=== PATIENT | male | born 1955 | race Caucasian/White ===

== ENCOUNTER 2024-06-01 06:35 | Outpatient (CLI) | payer MEDICARE, SELFPAY ==
--- NOTE | ~2024-06-01 | MR_ITS ---
MRI of the lumbar spine Clinical History: Back pain Technique: Axial T2-weighted images, and sagittal T1-weighted, T2-weighted, and and T2 fat-sat images were acquired. Following intravenous administration of 15 cc MultiHance gadolinium, T1-weighted fat- sat imaging was performed in the axial and sagittal planes. Findings: There is no fracture of the lumbar spine. There is minimal grade 1 retrolisthesis of L5 ove r S1. There are Modic type I changes about the L5-S1 disc space. No suspicious bone marrow signal abn ormality seen. At L1-L2, there is moderate to advanced degenerative disc narrowing. There is mild disc bulge with mo derate facet arthropathy. No central canal stenosis. There is moderate left neural foraminal narrowin g, and mild right neural foraminal narrowing. At L2-L3, there is advanced degenerative disc narrowing. There is mild diffuse disc bulge and advance d facet arthropathy. No central canal stenosis. There is moderate to advanced bilateral neural forami nal narrowing, left worse than right. At L3-L4, there is advanced degenerative disc narrowing. There is minimal disc bulge with moderate to advanced facet arthropathy. No central canal stenosis. There is moderate to advanced bilateral neura l foraminal narrowing. At L4-L5, there is advanced degenerative disc narrowing. There is diffuse disc bulge and severe facet arthropathy. There is minimal central canal stenosis. There is severe bilateral neural foraminal genesis iber otherwise. At L5-S1, there is severe degenerative disc narrowing. There is diffuse disc bulge with severe facet arthropathy. There is significant compression of the thecal sac, largely due to prominent epidural fa t at this level. There is severe bilateral neural foraminal, otherwise. Paravertebral soft tissues are otherwise unremarkable. Impression: Advanced degenerative spondylosis, as detailed above. Reviewed, dictated and finalized at location M. Impression: Advanced degenerative spondylosis, as detailed above.
== END 2024-06-01 06:36 | disposition home or self-care (01) ==
PROVIDERS: Visit Provider Neurological Surgery
DX: M47.896 Other spondylosis, lumbar region (principal)
CPT/HCPCS: 72158; A9577

== ENCOUNTER 2025-01-08 09:55 | Outpatient (CLI) | payer MEDICARE, SELFPAY ==
--- NOTE | 2025-01-08 10:51 | ECG_ITS ---
Test Date: 2025-01-08 11:05:45 Measurements Intervals [place] Rate: 71 P: -15 RI: 172 QRS: 1 QRSD: 92 T: 18 QT: 366 QTc: 400 Interpretive Statements SINUS RHYTHM No previous ECG available for comparison Electronically Signed On 01-09-2025 16:35:14 CDT by Jas Dupont M.D.
[2025-01-08 11:19] LABS: Hemoglobin 13.6 g/dL (14.0-18.0); Mean Corpuscular HGB Conc 32.4 g/dl (32-36); Mean Corpuscular Hemoglobin 30.3 pg (26-34); Mean Corpuscular Volume 93.5 fl (80-100); Mean Platelet Volume 10.6 fl (7.4-10.4); Platelet Count Result 196 k/mm3 (150-375); Red Blood Count 4.49 M/mm3 (4.6-6.20); Red Cell Distribution Width 12.7 % (11.5-14.5); White Blood Count 6.5 K/mm3 (4.5-10.0)
[2025-01-08 11:23] LABS: Add Urine Microscopic? NO; Appearance Urine Clear (Clear); Bilirubin Urine Negative (Negative); Blood Urine Negative (Negative); Color Urine Yellow (Yellow); Glucose Urine UA Negative (Negative); Ketones Urine Negative (Negative); Leukocyte Esterase Ur Negative LEU/UL (Negative); Nitrate Urine Negative (Negative); Protein Urine Negative (Negative); Specific Grav Ur 1.008 (1.001-1.035); Urobilinogen Urine 0.2 mg/dL (<2.0)
[2025-01-08 11:28] LABS: Hemoglobin A1C 6.5 % (<5.7)
[2025-01-08 11:33] LABS: Prothrombin Time 12.9 Seconds (11.1-14.7)
--- OUTSIDE RECORDS SUMMARY | 2025-01-08 11:35 | XMS_ITS | Encounter Summary ---
Author Organization [facility] Address [address] [place] [address] Phone Care Team Providers Care Assembly Operator Name Role Phone Dominick Brennan MD Primary Care Provider Eran Ortega MD Unavailable Unavailable Reason for Visit * Reason Comments Medication Refill Encounter Details Date Type Department Care Team (Late st Contact Info) Description 09/18/2021 Refill [facility] [address] [place] [address] Dominick Brennan MD [address] [address] Medication Refill Social History Tobacco Use Types Packs/Day Years Used Date Smoking Tobacco: Never Smokeless Tobacco: Never Alcohol Use Standard Drinks/Week Comments No 0 (1 standard drink = 0.6 oz pur e alcohol) PHQ-2 Answer Date Recorded Total Score - Questions 1-9 0 11/26 Sexually Active Control Partners Comments Yes Female Sex and Gender Information Value Date Recorded Sex Assigned at Not on file Legal Sex Male 11:09 PM CDT Gender Identity Not on file Sexual Orientation Not on file documented as of this encounter Miscellaneous Notes * Telephone Encounter - Beatrice Garcia RN - 09/19/2021 2:23 PM CST Patient needs an appointment with PCP/MEDICAL OFFICE RECEPTIONIST ASSISTANT prior to anymore refills EAR PHYSICIAN * Telephone Encounter - Beatrice Garcia RN - 09/19/2021 2:22 PM CST 90 days on 09/08/21 EAR PHYSICIAN documented in this encounter Plan of Treatment Not on file documented as of this encounter Visit Diagnoses Not on filedocumented in this encounter Additional Health Concerns Assessment Noted Time PHQ-9 Depression Total Score: 0 12/22/19 20 8:00 AM NUCLEAR PHYSICIAN documented as of this encounter Care Teams Assembly Operator Relationship Specialty Start Date End Date Dominick Brennan MD [address] [id number] PCP - General Family Medicine 09/04/15 01/19/23 Eran Ortega MD [address] [address] Consulting Physician Gastroenterology 05/05/17 documented as of this encounter
--- OUTSIDE RECORDS SUMMARY | 2025-01-08 11:35 | XMS_ITS | Clinical Summary ---
Author Organization [facility] Address [address] [place] [address] Care Team Providers Care Adult Remedial Education Instructor Name Role Phone Dominick Brennan MD Primary Care Provider [phone] Pranav Charles MD Unavailable [phone] Allergies Active Allergy Reactions Criticality Noted Date Comments Vince Inhibitors Other (See comments) Low 01/02/2020 Cough Medications blood glucose diagnostic (OneTouch Ultra Blue Test Strip) strip Test once a day on a rotation basis 12/29/2016 Active metFORMIN (GLUCOPHAGE) 500 mg tabletIndicatio ns:Prevention of Type 2 Diabetes Mellitus Take 1,000 mg by mouth 2 (two) times a day with meals 06/10/2020 Active omega-3 fatty acids-fish oil 360-1,200 mg capsule Take 1,200 mg by mouth daily Active rosuvastatin (CRESTOR) 10 mg tablet TAKE ONE TABLET BY MOUTH EVERY EVENING 04/04/2020 Active telmisartan (MICARDIS) 40 mg tablet Take 40 mg by mouth daily 06/21/2020 Active coenzyme Q10 100 mg capsule Take 100 mg by mouth daily Active HYDROcodone-vince taminophen (NORCO) 5-325 mg per tabletIndicatio ns:Pain Take 1-2 tablets by mouth every 4 (four) hours as needed for pain 30 tablet 12/29/2021 Active Active Problems Problem Noted Date Diagnosed Date Personal history of colonic polyps 01/22/2021 Overview (01/22/2021): Added automatically from request for surgery [id number] Encounter for screening colonoscopy 01/22/2021 Overview (01/22/2021): Added automatically from request for surgery [id number] Inflamed seborrheic keratosis 03/03/2017 Papules 11/12/2015 Keratosis, senilis 11/12/2015 Multiple benign melanocytic nevi 11/12/2015 Hypertension 03/10/2014 Overview (01/28/2017): HYPERTENSION NOS Hyperlipidemia 03/10/2014 Overview (01/30/2017): HYPERLIPIDEMIA NEC/NOS Immunizations Immunization Administration Dates Next Due Influenza, Trivalent, IM (MDV) 08/31/2008 Surgical History Surgery Date Site/Laterality Comments COLONOSCOPY 07/23/2015 COLONOSCOPY 03/10/2021 KIDNEY STONE SURGERY Medical History Medical History Date Comments Hyperlipidemia Hyperlipidemia Kidney stones Hypertension Type 2 diabetes mellitus (HCC) GERD (gastroesophageal reflux disease) Family History Medical History Relation Name Comments Diabetes type II Brother 1 Diabetes -T ype II; Diabetes Brother 2 Family history of diabetes mellitus - (Added by TW Conv) Coronary artery disease Father Chris nary artery disease; Diabetes Father Family history of diabetes mellitus - (Added by TW Conv) Diabetes type II Father Diabetes -T ype II; Cause of : Diabetes -Type II Hypertension Father Hypertension; Stroke Father Stroke; Prostate cancer Maternal Grandfather Fami ly history of malignant neoplasm of prostate - Relation: Grandfather (Added by TW Conv) Stroke Mother Stroke; Diabetes Other 1 Family history of diabetes mellitus - (Added by TW Conv) Prostate cancer Other 2 Family histo ry of malignant neoplasm of prostate - (Added by TW Conv) Relation Name Status Comments Brother 1 Brother 2 Father Maternal Grandfather Mother Other 1 Other 2 Social History Tobacco Use Types Packs/Day Years Used Date Smoking Tobacco: Never Alcohol Use Standard Drinks/Week Comments Yes 0 (1 standard drink = 0.6 oz pur e alcohol) AUDIT-C Answer Date Recorded Q1: How often do you have a drink containing alc ohol? Never 12/15/2021 Average Number of Drinks Not on file 022 Frequency of Binge Drinking Not on file 11/26 Sex and Gender Information Value Date Recorded Sex Assigned at Not on file Legal Sex Male 12:46 AM FAMILY LAW MEDIATOR Gender Identity Not on file Sexual Orientation Not on file Obstetrics History Last Filed Vital Signs Vital Sign Reading Time Taken Comments Blood Pressure 150/96 12/29/2021 10:20 AM FAMILY LAW MEDIATOR Pulse 73 12/29/2021 10:25 AM FAMILY LAW MEDIATOR Temperature 36 C (96.8 F) 12/29/2021 9:55 AM FAMILY LAW MEDIATOR Respiratory Rate 17 12/29/2021 10:25 AM FAMILY LAW MEDIATOR Oxygen Saturation 99% 12/29/2021 10:25 AM FAMILY LAW MEDIATOR Inhaled Oxygen Concentration - - Weight 74.8 kg (165 lb) 12/15/2021 11:40 AM FAMILY LAW MEDIATOR Height 167.6 cm (5' 6 ) 12/15/2021 11:40 AM FAMILY LAW MEDIATOR Body Mass Index 26.63 12/15/2021 11:40 AM FAMILY LAW MEDIATOR Plan of Treatment Health Maintenance Due Date Last Done Comments Depression Screening 1955 Hepatitis C Screening 1955 Hepatitis B Screening 1972 Zoster Vaccine (1 of 2) 2004 DTaP/Tdap/Td Vaccine (1 - Tdap) 10/26/2008 9 Abdominal Aortic Aneurysm (A AA) Screen 2019 Well Visit 65+ 2019 Pneumococcal vaccine 65+ (2 of 2 - PPSV23) 08/04/2022 08/04/2021 Fall Risk Assessment 12/29/2022 12/29/2021 Covid-19 Vaccine (3 - 2023-2 5 season) 2024 02/04/2021, 01/07/2021 Influenza Vaccine (#1) 2024 9, 08/14/2019, 09/21/2018, Additional history exists Colon Cancer Screening-Colonoscopy 03/10/2031 03/10/2021, 07/23/2015 Colon Cancer Screening-CT Colonography Discontinued 03/10/2021, 07/23/2015 Colon Cancer Screening-DNA Stool Discontinued 03/10/20 21, 07/23/2015 Colon Cancer Screening-FIT Discontinued 03/10/2021, Colon Cancer Screening-Sigmoidoscopy Discontinued 03/10/2021, 07/23/2015 Procedures Procedure Name Priority Date/Time Associated Diagnosis Comments COLONOSCOPY 03/10/2021 7:29 AM CDT from Last 3 Months or Most Recently Relevant to Health Maintenance Results * COLONOSCOPY (03/10/2021 7:29 AM CDT) Anatomical Region Laterality Modality Other Narrative Procedure Note Eran Ortega MD - 03/10/2021 7:[address] [facility] Patient Name: Zander Zhao Procedure Date: 03/10/2021 7:29 AM Date of : 1955 Admit Type: Outpatient Age: 65 Gender: Male Attending MD: Eran Ortega M.D. Room: [facility] END[facility]COPY ROOM 2 Note Status: Finalized Patient Profile: Refer to note in patient chart for documentation of history and physical. Procedure: Colonoscopy Indications: High risk colon cancer surveillance: Personalhistory of colonic polyps, Last colonoscopy: June2015 Referring MD: Alisha Benjamin D.O. Providers: Eran Ortega M.D. Impression: - Hemorrhoids found on perianal exam. - One 2 mm polyp in the ascending colon, removedwith a jumbo cold forceps. Resected and retrieved. - The examination was otherwise normal. Recommendation: - Discharge patient to home. - Resume previous diet. - Continue present medications. - Await pathology results. - Repeat colonoscopy in 5 years for surveillance. - Return to primary care physician as previously scheduled. Medicines: Propofol per Anesthesia Complications: No immediate complications. Estimated Blood Loss: Estimated blood loss: none. Procedure: Pre-Anesthesia Assessment: - This assessment was completed [Time ofAssessment] prior to the administration of sedation. The benefits, risks and alternatives of theprocedure and sedation were discussed and informed consentwas obtained. All questions were answered. Please referto the signed informed consent document in the medical record. The bowel preparation used was Miralax and bisacodyl tablets via single dose instruction. The scope was passed under direct vision. TheColonoscope [id number] was introduced through the anus and advanced to the the cecum, identified by appendiceal orifice and ileocecal valve. The colonoscopy was performed without difficulty. The patient tolerated the procedure well. The qualityof the bowel preparation was excellent. Findings: Hemorrhoids were found on perianal exam. A 2 mm polyp was found in the ascending colon. The polyp was sessile. The polyp was removed with a jumbo cold forceps. Resection andretrieval were complete. Verification of patient identification for thespecimen was done by the physician and nurse using the patient's name andbirth date. Estimated blood loss was minimal. The exam was otherwise without abnormality. Electronically signed by Eran Ortega M.D. Eran Ortega M.D. 03/10/2021 8:54:57 AM Number of Addenda: 0 Note Initiated On: 03/10/2021 7:29 AM Procedure Code(s): --- Professional --- 38809, Colonoscopy, flexible; with biopsy, single or multiple Diagnosis Code(s): --- Professional --- K63.5, Polyp of colon K64.9, Unspecified hemorrhoids Z86.010, Personal history of colonic polyps CPT copyright 2019 [employer]. All rights reserved. The codes documented in this report are preliminary and upon secret code expert reviewmay be revised to meet current compliance requirements. Recognized by the [employer] for promoting quality in endoscopy Eran Ortega MD ENDOSCOPY PROCEDURES Final Re sult from Last 3 Months or Most Recently Relevant to Health Maintenance Insurance [facility] REF AETNA MEDICARE GOLD [facility] CHOICE PLUS Advance Directives For more information, please contact: [phone] * Full Code (Latest Code Status on File) Date Activated Date Inactivated Comments 03/10/2021 7:50 AM 03/10/2021 1:38 PM Care Teams Adult Remedial Education Instructor Relationship Specialty Start Date End Date Dominick Brennan MD [address] [place] [place] [address] [address] PCP - General 12/23/21 Pranav Charles MD [address] [place] [address] [address] Consulting Physician Neurosurgery 12/29/21
--- OUTSIDE RECORDS SUMMARY | 2025-01-08 11:35 | XMS_ITS | Referral Summary ---
Author Organization [facility] Address [address] [place] [address] Care Team Providers Care Drainage Design Coordinator Name Role Phone Dominick Brennan MD Primary Care Provider [phone] Pranav Charles MD Unavailable [phone] Allergies Active Allergy Reactions Criticality Noted Date [...] (01/22/2021): Added automatically from request for surgery [id number] Encounter for screening colonoscopy 01/22/2021 Overview (01/22/2021): Added automatically from request for surgery [id number] Inflamed seborrheic keratosis 03/03/2017 Papules 11/12/2015 Keratosis, senilis 11/12/2015 Multiple benign melanocytic nevi 11/12/2015 Hypertension 03/10/2014 Overview (01/28/2017): HYPERTENSION NOS Hyperlipidemia 03/10/2014 Overview (01/30/2017): HYPERLIPIDEMIA NEC/NOS Immunizations Immunization Administration Dates Next Due Influenza, Trivalent, IM (MDV) 08/31/2008 Social History Tobacco Use Types Packs/Day Years [...] on file Legal Sex Male 12:46 AM RETICLE PRINTER Gender Identity Not on file Sexual Orientation Not on file Last Filed Vital Signs Vital Sign Reading Time Taken Comments Blood Pressure 150/96 12/29/2021 10:20 AM RETICLE PRINTER Pulse 73 12/29/2021 10:25 AM RETICLE PRINTER Temperature 36 C (96.8 F) 12/29/2021 9:55 AM RETICLE PRINTER Respiratory Rate 17 12/29/2021 10:25 AM RETICLE PRINTER Oxygen Saturation 99% 12/29/2021 10:25 AM RETICLE PRINTER Inhaled Oxygen Concentration - - Weight 74.8 kg (165 lb) 12/15/2021 11:40 AM RETICLE PRINTER Height 167.6 cm (5' 6 ) 12/15/2021 11:40 AM RETICLE PRINTER Body Mass Index 26.63 12/15/2021 11:40 AM RETICLE PRINTER Plan of Treatment Not on file Procedures Procedure Name Priority Date/Time Associated Diagnosis Comments COLONOSCOPY 03/10/2021 7:29 AM CDT from Last 3 Months or Most Recently Relevant to Health Maintenance Results * COLONOSCOPY (03/10/2021 7:29 AM CDT) Anatomical Region Laterality Modality Other Narrative Procedure Note Eran Ortega MD - 03/10/2021 7:29 AM CDT [facility] Patient Name: Zander Zhao Procedure Date: 03/10/2021 7:29 AM Date of : 1955 Admit Type: Outpatient Age: 65 Gender: Male Attending MD: Eran Ortega M.D. Room: [facility] ENDOSCOPY ROOM 2 Note Status: Finalized Patient [...] scope was passed under direct vision. TheColonoscope [id number] was introduced through the anus and advanced [...] 7:29 AM Procedure Code(s): --- Professional --- 54970, Colonoscopy, flexible; with biopsy, single or multiple Diagnosis Code(s): --- Professional --- K63.5, Polyp of colon K64.9, Unspecified hemorrhoids Z86.010, Personal history of colonic polyps CPT copyright 2019 [employer]. All rights reserved. The codes documented in this report are preliminary and upon silk soaker reviewmay be revised to meet current compliance requirements. Recognized by the [employer] for promoting quality in endoscopy Eran Ortega MD ENDOSCOPY PROCEDURES Final Re sult from Last 3 Months or Most Recently Relevant to Health Maintenance Insurance [facility]IC[facility] GOLD [facility] CHOICE PLUS [facility] H[facility]/PPO Address: [facility] [id number] [place] [address] Advance Directives For more information, please contact: [phone] * Full Code (Latest Code Status on File) Date Activated Date Inactivated Comments 03/10/2021 7:50 AM 03/10/2021 1:38 PM Care Teams Drainage Design Coordinator Relationship Specialty Start Date End Date Dominick Brennan MD [address] [place] [address] PCP - General 12/23/21 Pranav Charles MD [address] [place] [address] Consulting Physician Neurosurgery 12/29/21
--- OUTSIDE RECORDS SUMMARY | 2025-01-08 11:35 | XMS_ITS | Clinical Summary ---
Author Organization [facility] Address [address] [place] [address] Phone Care Team Providers Care Visual Merchandising Manager Name Role Phone Alisha Benjamin Primary Care Provider [phone] Allergies Active Allergy Reactions Criticality Noted Date Comments Vince Inhibitors Other (See Comments) Low 01/02/2020 Cough Cough Medications aspirin-calcium carbonate 81 mg-300 mg calcium(777 mg) Tablet Take 81 mg by mouth. Active coenzyme Q10 100 mg Capsule Take 100 mg by mouth. Active Fish Oil-[place]-3 Fatty Acids 360-1,200 mg Capsule Take 1,200 mg by mouth. Active sildenafiL (Viagra) 50 mg tabletIndications :Erectile dysfunction, unspecified erectile dysfunction type Take 1 Tablet (50 mg) by mouth 1 time daily as needed for Erectile Dysfunction. 10 Tablet 1 3 Active rosuvastatin (CRESTOR) 10 mg tablet TAKE 1 TABLET (10 MG) BY MOUTH DAILY. 100 Tablet 3 4 Active telmisartan (MICARDIS) 80 mg TabletIndications :Benign hypertension take 1 tablet by mouth every day 100 Tablet 3 4 Active metFORMIN (GLUCOPHAGE) 500 mg tablet TAKE 2 TABS BY MOUTH 2 TIMES DAILY (WITH MEALS). 360 Tablet 3 4 Active glipiZIDE (GLUCOTROL XL) 5 mg Extended Release 24 hour tabletIndications :Type 2 diabetes mellitus with hyperglycemia, without long-term current use of insulin ([facility]) Take 1 Tablet (5 mg) by mouth daily. 4 Active traMADoL (ULTRAM) 50 mg tabletIndications :Low back pain, unspecified back pain laterality, unspecified chronicity, unspecified whether sciatica present Take 1 Tablet (50 mg) by mouth every 6 hours as needed for Pain. 30 Tablet 3 5 Active blood sugar diagnostic (OneTouch Verio test strips) StripIndications: Type 2 diabetes mellitus with hyperglycemia, without long-term current use of insulin ([facility]) ASSESS BLOOD GLUCOSE 3 TIMES A DAY. DX: E11.65 200 Strip 3 5 Active Active Problems Problem Noted Date Diagnosed Date Benign hypertension 07/15/2020 Pure hypercholesterolemia 07/15/2020 Nephrolithiasis 07/15/2020 DDD (degenerative disc disease), lumbar 07/15/20 20 Type 2 diabetes mellitus wit h hyperglycemia, without long-term current use of insulin Encounters Date Type Department Care Team Description 12/30/2024 External Device Data ST[facility] ABSTRACTION Provider, Abstract 12/29/2024 External Device Data [facility] ABSTRACTION Provider, Abstract 12/13/2024 External Device Data [facility] ABSTRACTION Provider, Abstract 12/01/2024 External Device Data [facility] ABSTRACTION Provider, Abstract 11/21/2024 External Device Data ST[facility] ABSTRACTION Provider, Abstract 11/13/2024 [facility] Internal Medicine [facility] [address] [address] Alisha Benjamin, Type 2 diabetes mellitus with hyperglycemia, without long-term current use of insulin ([facility]) (Primary Dx) 10/25/2024 [facility] Internal Medicine [facility] [address] [place] [address] Alisha Benjamin, Low back pain, unspecified back pain laterality, unspecified chronicity, unspecified whether sciatica present from Last 3 Months Immunizations Immunization Administration Dates Next Due (PREVNAR 13)(6 WKS UP) PNEUM OCOCCAL CONJUGATE (PCV13) 0.5 ML, IM 08/04/2021 (PREVNAR 20)(6 WKS UP) PNEUM OCOCCAL CONJUGATE VACCINE 20-VALENT (PCV20), POLYSACCHARIDE [id number] CONJUGATE, ADJUVANT 0.5 ML (PF) IM 09/24/2022 (SPIKEVAX) (12 YRS UP PRIMAR Y SERIES) COVID-19 VACCINE - MRNA-1273(PF) 100 MCG/0.5 ML IM SUSP 01/07/2021 INFLUENZA VACCINE HIGH DOSE QUADRIVALENT 65 YR UP PF IM 08/10/2023,08/04/2021 INFLUENZA VACCINE QUADRIVALENT 6 MOS UP PF IM INFLUENZA VACCINE QUADRIVALENT ADJ 65 YR UP PF I M 07/30/2020 Influenza Seasonal Unspecified Formulation IM Influenza Vaccine High Dose 65+ Yrs IM 9 Influenza Vaccine Tri Split 4+ Pf Im 08/31/2008 Family History Medical History Relation Name Comments Diabetes Brother Diabetes Father Heart Disease Father Stroke Father Stroke Mother Relation Name Status Comments Brother Father Mother Social History Tobacco Use Types Packs/Day Years Used Date Smoking Tobacco: Never Alcohol Use Standard Drinks/Week Comments Yes 0 (1 standard drink = 0.6 oz pur e alcohol) Financial Resource Strain Answer Date R ecorded How hard is it for you to pa y for the very basics like food, housing, medical care, and heating? Not hard at all 09/10/2022 Food Insecurity Answer Date Recorded In the past 12 months, have you worried that your food would run out before you had money to buy more? Never true 09/10/2022 In the past 12 months, did y ou run out of food and didn't have money to buy more? Never true 09/10/2022 Transportation Needs Answer Date Record ed In the past 12 months, has l ack of transportation kept you from medical appointments or from getting medications? 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 Not on file Not on file Not on file Last Filed Vital Signs Vital Sign Reading Time Taken Comments Blood Pressure 130/76 08/25/2024 9:57 AM CDT Pulse 95 08/25/2024 9:57 AM CDT Temperature 36.7 C (98.1 F) 08/25/2024 9:57 AM CDT Respiratory Rate 18 01/31/2024 1:38 PM CDT Oxygen Saturation 98% 08/25/2024 9:57 AM CDT Inhaled Oxygen Concentration - - Weight 72.6 kg (160 lb) 08/25/2024 9:57 AM CDT Height 167.6 cm (5' 6 ) 08/25/2024 9:57 AM CDT Body Mass Index 25.82 08/25/2024 9:57 AM CDT Plan of Treatment Upcoming Encounters Date Type Department Care Team (Late st Contact Info) Description 02/26/2025 11:00 AM CDT Office Visit [facility] Internal Medicine [facility] [address] [address] Alisha Benjamin, [address] [facility] [address] [place] [id number] 10/01/2025 1:00 PM WRAPPER SORTER Office Visit [facility] Internal Medicine [facility] [address] [address] Alisha Benjamin, [address] [facility] [address] [place], [place] [id number] Health Maintenance Due Date Last Done Comments DTAP/TDAP/TD VACCINES (1 - Tdap) 1973 DIABETES STATIN MANAGEMENT ( AUTO ORDER) 1994 FIT-DNA Q 3 years 1999 FIT/FOBT Q 1 year 1999 Flex Sig/CT Colonography Q 5 years 1999 ZOSTER VACCINE (1 of 2) 2004 DIABETES ANNUAL RETINAL EXAM 02/12/2023, 12/27/2020, 12/08/2019 INFLUENZA VACCINE (#1) 2024 , 09/24/2022, 08/04/2021, Additional history exists COVID-19 Vaccine (3 - 2023-2 5 season) 2024 02/04/2021, 01/07/2021 [facility]HE eGFR (Auto Order) 10/25/2024 08/16/2024 , 01/20/2024, 04/26/2023, Additional history exists KHE uACR (Auto Order) 10/25/2024 08/16/2024 , 10/29/2023, 04/26/2023, Additional history exists Medicare Advantage ([place]) Preventative Visit/Annual Wellness Visit 10/25/2024 10/29/2023, 08/10/2023, 09/10/2022, Additional history exists DIABETES ANNUAL FOOT EXAM 01/30/20252023, 09/10/2022, 09/10/2022 DIABETES HBA1C Q 6 MONTHS 02/14/20252023, 01/20/2024, 10/27/2023, Additional history exists DIABETES MICROALBUMIN ANNUAL SCREEN 08/16/2025 08/16/2024, 10/29/2023, 04/26/2023, Additional history exists DIABETES: A1C (Auto Order) 08/16/202508/16, 01/20/2024, 10/27/2023, Additional history exists LDL CHOLESTEROL ANNUAL 08/16/2025 , 10/27/2023, 09/01/2022, Additional history exists COLORECTAL SCREENING 03/10/2026 03/10/2021, 03/10/2021, 03/10/2021, Additional history exists Colorectal Cancer Screening 03/10/2026 RSV VACCINE (60+ or ) (1 - 1-dose 75+ series) 2029 PNEUMOCOCCAL VACCINE 50+ YEARS Completed 09/24/2022 , 08/04/2021 Procedures Procedure Name Priority Date/Time Associated Diagnosis Comments MICROALBUMIN/CREATININ E RATIO, RANDOM UR Routine 08/16/2024 9:20 AM CDT Type 2 diabetes mellitus with hyperglycemia, without long-term current use of insulin ([facility]) COMPREHENSIVE METABOLIC PANEL Routine 08/16/2024 9:19 AM CDT Type 2 diabetes mellitus with hyperglycemia, without long-term current use of insulin ([facility]) LIPID PANEL Routine 08/16/2024 9:19 AM CDT Type 2 diabetes mellitus with hyperglycemia, without long-term current use of insulin ([facility]) HEMOGLOBIN A1C Routine 08/16/2024 9:19 AM CDT Type 2 diabetes mellitus with hyperglycemia, without long-term current use of insulin ([facility]) HM DIABETES EYE EXAM Routine 02/12/2022 ENDOSCOPY, COLON, SCREENING Routine 03/10/2021 from Last 3 Months or Most Recently Relevant to Health Maintenance Results * MICROALBUMIN/CREATININE RATIO, RANDOM UR (08/16/2024 9:20 AM CDT) Creatinine, Urine 100 20 - 320 mg/dL [facility] MICROALBUMIN, URINE <0.2 See Note: mg/dL [facility] Comment: Reference Range: Reference Range Not established MICROALBUMIN/CREAT RATIO, UR NOTE <30 mg/g creat [facility] Comment: NOTE: The urine albumin value is less than 0.2 mg/dL therefore we are unable to calculate excretion and/or creatinine ratio. The ADA defines abnormalities in albumin excretion as follows: Albuminuria Category Result (mg/g creatinine) Normal to Mildly increased <30 Moderately increased 30-299 Severely increased > OR = 300 The ADA recommends that at least two of three specimens collected within a 3-6 month period be abnormal before considering a patient to be within a diagnostic category. FASTING:YES FASTING: YES Test Performed at: [facility] [id number] [id number] Estrella Medina MD Urine URINE SPECIMEN OBTAINED BY CLEAN CATCH PROCEDURE / Unknown 08/16/2024 9:20 AM CDT 08/16/2024 9:21 AM CDT Alisha Benjamin DO URINE ORDERABLES Final Result [facility] [phone] [facility] [id number] [id number] * (ABNORMAL) HEMOGLOBIN A1C (08/16/2024 9:19 AM CDT) HEMOGLOBIN A1C 6.0(H) <5.7 % of total Hgb [facility] Comment: For someone without known diabetes, a hemoglobin A1c value between 5.7% and 6.4% is consistent with prediabetes and should be confirmed with a follow-up test. For someone with known diabetes, a value <7% indicates that their diabetes is well controlled. A1c targets should be individualized based on duration of diabetes, age, comorbid conditions, and other considerations. This assay result is consistent with an increased risk of diabetes. Currently, no consensus exists regarding use of hemoglobin A1c for diagnosis of diabetes for children. ESTIMATED AVERAGE GLUCOSE (MG/DL) 126 mg/dL [facility] ESTIMATED AVERAGE GLUCOSE (MMOL/L) 7.0 mmol/L [facility] Comment: FASTING:YES FASTING: YES Test Performed at: [facility] [address] [place] [id number] RadhaLenora Mahsa Adam Blood 08/16/2024 9:19 AM CDT 08/16/2024 9:19 AM CDT Alisha Benjamin DO CHEMISTRY ORDERABLES Final Re sult [facility] [phone] [facility] [address] [place] [id number] * LIPID PANEL (08/16/2024 9:19 AM CDT) CHOLESTEROL 114 <200 mg/dL [facility] HDL 54 > OR = 40 mg/dL [facility] TRIGLYCERIDE 84 <150 mg/dL [facility] LDL CALCULATED 44 mg/dL (calc) [facility] Comment: Reference range: <100 Desirable range <100 mg/dL for primary prevention; <70 mg/dL for patients with CHD or diabetic patients with > or = 2 CHD risk factors. LDL-C is now calculated using the Edmond calculation, which is a validated novel method providing better accuracy than the Friedewald equation in the estimation of LDL-C. Jeet JONES et al. MAKENZIE. 2013;310(19): 4347-3139 (http://education.CareFamily.[employer]/faq/FXE583) CHOL/HDL RATIO 2.1 <5.0 (calc) [facility] NON-HDL CHOLESTEROL 60 <130 mg/dL (calc) [facility] Comment: For patients with diabetes plus 1 major ASCVD risk factor, treating to a non-HDL-C goal of <100 mg/dL (LDL-C of <70 mg/dL) is considered a therapeutic option. Test Performed at: [facility] [address] [facility] [place] [address] Estrella Medina MD Blood 08/16/2024 9:19 AM CDT 08/16/2024 9:19 AM CDT us Alisha Benjamin DO CHEMISTRY ORDERABLES Final Re sult [facility] [phone] [facility] [address] [facility] [place] [address] * (ABNORMAL) COMPREHENSIVE METABOLIC PANEL (08/16/2024 9:19 AM CDT) GLUCOSE 85 65 - 99 mg/dL [facility] Comment: Fasting reference interval BUN 20 7 - 25 mg/dL [facility] CREATININE 0.87 0.70 - 1.28 mg/dL [facility] GFR 93 > OR = 60 mL/min/1. 73m2 [facility] BUN/CREAT RATIO SEE NOTE: 6 - 22 (calc) [facility] Comment: Not Reported: BUN and Creatinine are within reference range. SODIUM 140 135 - 146 mmol/L [facility] POTASSIUM 5.0 3.5 - 5.3 mmol/L [facility] CHLORIDE 103 98 - 110 mmol/L [facility] CO2 26 20 - 32 mmol/L [facility] CALCIUM 10.6(H) 8.6 - 10.3 mg/dL [facility] TOTAL PROTEIN 7.1 6.1 - 8.1 g/dL [facility] ALBUMIN 4.7 3.6 - 5.1 g/dL [facility] GLOBULIN 2.4 1.9 - 3.7 g/dL (calc) [facility] ALBUMIN/GLOBULIN RATIO 2.0 1.0 - 2.5 (calc) [facility] BILIRUBIN TOTAL 0.9 0.2 - 1.2 mg/dL [facility] ALKALINE PHOSPHATASE 83 35 - 144 U/L [facility] AST 25 10 - 35 U/L [facility] ALT 29 9 - 46 U/L [facility] Comment: FASTING:YES FASTING: YES Test Performed at: [facility] [address] [place] [address] Estrella Medina MD Blood 08/16/2024 9:19 AM CDT 08/16/2024 9:19 AM CDT us Alisha Bib Oswaldhn DO CHEMISTRY ORDERABLES Final Re sult Performing Organization Address [facility] Co de Phone Number [facility] [phone] [facility] [address] [place] [address] * DIABETES EYE EXAM (02/12/2022) us Abstract Provider HEALTH MAINTENANCE Final Resul t Performing Organization Address [facility] Co de Phone Number REID VALLADARES MD CLIA# [id number] [address] [facility] [address] [address] * ENDOSCOPY, COLON, SCREENING (03/10/2021) us Alisha Bib Benjamin DO GI PROCEDURE ORDERABLES Final Result Performing Organization Address City/[facility]/ZIP Co de Phone Number REID VALLADARES MD CLIA# [id number] [address] [address] from Last 3 Months or Most Recently Relevant to Health Maintenance Insurance AETNA [id number] [facility] Advance Directives For more information, please contact: [phone] Documents on File Type Date Recorded Patient Child Adolescent Care Expl anation Advance Directive POA 07/26/2020 12:21 PM Advance Directive POA Care Teams Visual Merchandising Manager Relationship Specialty Start Date End Date Alisha Benjamin DO [address] [place] [address] [address] [place] [address] PCP - General Internal Medicine 07/15/20
--- OUTSIDE RECORDS SUMMARY | 2025-01-08 11:35 | XMS_ITS | Encounter Summary ---
Author Organization [facility] Address [address] [place] [address] Phone Care Team Providers Care Special Events Director Name Role Phone Dominick Brennan MD Primary Care Provider Eran Ortega MD Unavailable Unavailable Reason for Visit * Reason Comments Medication Refill Encounter Details Date Type Department Care Team (Late st Contact Info) Description 05/08/2021 Refill [facility] [address] [place] [address] Dominick Brennan MD [address] [address] Medication Refill Social History Tobacco Use Types [...] Telephone Encounter - Beatrice Garcia RN - 05/08/2021 11:48 AM CDT Medication failed the protocol, provider to review and approve the medication order if appropriate. Requested Prescriptions Pending Prescriptions Disp Refills metFORMIN (GLUCOPHAGE) 500 MG Tablet [Pharmacy Med Name: METFORMIN HCL 500 MG TABLET] 360 Tablet 1 Sig: TAKE 2 TABS BY MOUTH 2 TIMES DAILY (WITH MEALS). Biguanides Protocol Failed - 05/08/2021 12:41 AM Failed - Visit with relevant provider in past 6 months or upcoming 90 days Recent Visits No visits were found meeting these conditions. Showing recent visits within past 182 days and meeting all other requirements Future Appointments No visits were found meeting these conditions. Showing future appointments within next 90 days and meeting all other requirements Failed - HgA1C on record in past 6 months HGB-A1C Date Value Ref Range Status 06/25/2020 6.2 (A) 4 - 6 Final Failed - GFR on record in past 6 months GFR, EST. 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
--- OUTSIDE RECORDS SUMMARY | 2025-01-08 11:35 | XMS_ITS | Encounter Summary ---
Author Organization [facility] Address [address] [place] [address] Phone Care Team Providers Care Gasoline Finisher Name Role Phone Dominick Brennan MD Primary Care Provider [phone] Eran Ortega MD Unavailable Unavailable Reason for Visit * Reason Comments Medication Refill Encounter Details Date Type Department Care Team (Late st Contact Info) Description 07/10/2021 Refill [facility] - Family Medicine [facility] [address] [place] [phone] Dominick Brennan MD [address] [address] Medication Refill Social History Tobacco Use Types [...] on file documented as of this encounter Plan of Treatment Not on file documented as of this encounter Visit Diagnoses Not on filedocumented in this encounter Additional Health Concerns Assessment Noted Time PHQ-9 Depression Total Score: 0 12/22/19 20 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
--- OUTSIDE RECORDS SUMMARY | 2025-01-08 11:35 | XMS_ITS | Clinical Summary ---
Author Organization [facility] Address [address] [place] [address] Phone Care Team Providers Care Cable Splicing Technician Name Role Phone Eran Ortega MD Unavailable Unavailable Allergies Active Allergy Reactions Criticality Noted Date Comments Vince Inhibitors Other (see Comments) Cough Medications [place]-3 Fatty Acids (FISH OIL) 1200 MG Capsule Take 1,200 mg by mouth daily. Active Aspirin 81 MG Tablet Take 81 mg by mouth daily. Active Coenzyme Q10 (COQ-10) 100 MG Capsule Take 100 mg by mouth daily. Active Glucose Blood (ONE TOUCH ULTRA TEST) StripIndications:Ty pe 2 diabetes mellitus treated without insulin (HCC) Test once a day on a rotation basis 100 Strip 3 7 Active rosuvastatin (CRESTOR) 10 MG TabletIndications:H yperlipidemia, unspecified hyperlipidemia type TAKE ONE TABLET BY MOUTH EVERY EVENING 90 Tab 2 0 Active metFORMIN (GLUCOPHAGE) 500 MG Tablet TAKE 2 TABS BY MOUTH 2 TIMES DAILY (WITH MEALS). 360 Tablet 1 1 Active telmisartan (MICARDIS) 40 MG Tablet TAKE 1 TABLET BY MOUTH EVERY DAY 30 Tablet 1 Active Active Problems Problem Noted Date Diagnosed Date Chronic joint pain 06/20/2020 Chronic back pain greater than 3 months duration 06/20/2020 Bilateral hip pain 06/20/2020 Hypercalcemia 05/03/2019 Renal stones 08/02/2018 Overweight 12/16/2017 Type 2 diabetes mellitus treated without insulin 11/17/2016 Elevated hemoglobin A1c 11/16/2016 Elevated liver enzymes 12/26/2015 Hypertension, essential 12/26/2015 Hyperlipidemia 12/16/2015 Resolved Problems Problem Noted Date Diagnosed Date Resolved Date Diet-controlled diabetes mellitus (<HCC>) 12/26/2015 11/16/2016 Hyperglycemia 12/16/2015 05/05/2017 Immunizations Immunization Administration Dates Next Due Covid-19, Mrna, Lnp-s, PF, 1 00 mcg/0.5 mL Dose (Moderna) 02/04/2021,01/07/2021 Influenza Vaccine 08/31/2008 Influenza Vaccine greater than 3 yrs 10/13/2013, 08/31/2008 Influenza Vaccine less than 3 yrs 08/14/2019 Influenza Vaccine, Quadrivalent, PF 09/21/2018 Influenza, Quadrivalent, Adjuvanted 07/30/2020 Influenza, Seasonal, Injectable, Undefined 08/21,10/13/2013,10/25/2012 Influenza, high-dose, trivalent, PF 08/15/2019 TD VACCINE 10/25/2008 Family History Medical History Relation Name Comments Diabetes Brother Cancer Daughter Diabetes Father Hypertension Father Stroke Father Stroke Mother Relation Name Status Comments Brother Daughter Father Mother Social History Tobacco Use Types Packs/Day Years Used Date Smoking Tobacco: Never Smokeless Tobacco: Never Tobacco Cessation:Counseling Given: No Alcohol Use Standard Drinks/Week Comments No 0 [...] Sign Reading Time Taken Comments Blood Pressure 120/76 06/25/2020 3:38 PM CDT Pulse 83 06/25/2020 3:38 PM CDT Temperature 35.8 C (96.5 F) 06/25/2020 3:38 PM CDT Respiratory Rate 16 06/25/2020 3:38 PM CDT Oxygen Saturation 97% 06/25/2020 3:38 PM CDT Inhaled Oxygen Concentration - - Weight 75.3 kg (166 lb) 06/25/2020 3:38 PM CDT Height 167.6 cm (5' 6 ) 06/25/2020 3:38 PM CDT Body Mass Index 26.79 06/25/2020 3:38 PM CDT Plan of Treatment Health Maintenance Due Date Last Done Comments Diabetes: Foot Exam 1955 Hepatitis C Virus (HCV) Screening 1955 TdaP Immunization 1955 Pneumococcal Immunization (50+ years) (1 of 2 - PCV) 1973 Cologuard 2004 Immunochemical Fecal Occult Blood 2004 Zoster Immunization (1 of 2) 2004 Diabetes: Eye Exam 12/08/2020 12/08/2019 Diabetes: Hemoglobin A1c 12/23/2020 020, 11/03/2019, 05/02/2019, Additional history exists Diabetes: Nephropathy Screening 07/03/2021 07/03/2020, 06/29/2019, 02/02/2019, Additional history exists Influenza Immunization (#1) 06/25/202403/2020, 08/15/2019, 08/14/2019, Additional history exists SARS-COV-2 Immunization ( season) 2024 02/04/2021, 01/07/2021 Colonoscopy 07/23/2025 07/23/2015 Colorectal Cancer Screening 07/23/2025 Respiratory Syncytial Virus (RSV) Immunization (Adult) (1 - 1-dose 75+ series) 2029 07/23/2015 PSA Discussion Discontinued 08/21/2019, 11/25, 12/08/2017, Additional history exists Hepatitis B Immunization Aged Out No longer eligible based on patient's age to complete this topic Meningococcal Immunization (ACWY) Aged Out No longer eligible based on patient's age to complete this topic Rotavirus Immunization Aged Out No lo nger eligible based on patient's age to complete this topic Procedures Procedure Name Priority Date/Time Associated Diagnosis Comments CMP (COMPREHENSIVE METABOLIC PANEL) Routine 07/03/2020 9:14 AM CDT Renal stones Hypercalcemia POCT GLYCOSYLATED HEMOGLOBIN Routine 06/25/2020 3:55 PM CDT Type 2 diabetes mellitus without complication, without long-term current use of insulin (HCC) PSA SCREEN Routine 08/21/2019 Prostate cancer screening HM COLONOSCOPY Routine 07/23/2015 from Last 3 Months or Most Recently Relevant to Health Maintenance Results * (ABNORMAL) CMP (COMPREHENSIVE METABOLIC PANEL) (07/03/2020 9:14 AM CDT) SODIUM 134(L) 136 - 144 mmol/L 07/03/2020 11:10 AM CDT [facility] POTASSIUM 4.8 3.5 - 5.1 mmol/L 07/03/2020 11:10 AM CDT [facility] CHLORIDE 98(L) 100 - 110 mmol/L 07/03/2020 11:10 AM CDT [facility] CO2, VENOUS 27 22 - 32 mmol/L 07/03/2020 11:10 AM CDT [facility] ANION GAP 13.8 8.0 - 20.0 mmol/L 07/03/2020 11:10 AM CDT [facility] GLUCOSE 180(H) 70 - 99 mg/dL 07/03/2020 11:10 AM CDT [facility] BUN 23 8 - 23 mg/dL 07/03/2020 11:10 AM CDT [facility] CREATININE, BLOOD 0.69(L) 0.80 - 1.30 mg/dL 07/03/2020 11:10 AM CDT [facility] BUN/CREATININE RATIO 33(H) 12 - 20 ratio 07/03/2020 11:10 AM CDT [facility] TOTAL PROTEIN 7.0 6.0 - 8.3 g/dL 07/03/2020 11:10 AM CDT [facility] ALBUMIN 4.7 3.5 - 5.2 g/dL 07/03/2020 11:10 AM CDT [facility] Comment: The colormetric methods used for the determination of Albumin may lead to falsely elevated test results in patients suffering from renal failure or insufficiency due to interference with other proteins. A/G RATIO 2.0 1.0 - 2.0 07/03/2020 11:10 AM CDT [facility] CALCIUM 10.1 8.9 - 10.3 mg/dL 07/03/2020 11:10 AM CDT [facility] T BILI 0.9 <=1.2 mg/dL 07/03/2020 11:10 AM CDT [facility] SGOT (AST) 21 <=40 U/L 07/03/2020 11:10 AM CDT [facility] SGPT (ALT) 35 <=41 U/L 07/03/2020 11:10 AM CDT [facility] ALKALINE PHOSPHATASE 78 40 - 130 U/L 07/03/2020 11:10 AM CDT [facility] GFR, EST. NONAFRICAN >60 >=60 07/03/2020 11:10 AM CDT [facility] GFR, EST. >60 >=60 020 11:10 AM CDT [facility] Comment: Creatinine Clearance is the preferred criteria for selecting drug dose adjustments in renally impaired patients. The GFR is provided as additional pertinent clinical information. GFR is reported in mL/min/1.73 sq m. Blood Venipuncture / Unknown 07/03/2020 9:14 AM CDT 07/03/2020 10:22 AM CDT us Yue Meek MD CHEMISTRY ORDERABLES Final Resul t [facility] [address] [place] [address] * (ABNORMAL) POCT GLYCOSYLATED HEMOGLOBIN (06/25/2020 3:55 PM CDT) HGB-A1C 6.2(A) 4 - 6 06/25/2020 3:55 PM CDT us Yue Meek MD POINT OF CARE TESTING (MANUAL) F inal Result * PSA SCREEN (08/21/2019) PSA (PROSTATE SPECIFIC ANTIGEN) 0.6 ng/mL Blood specimen (specimen) 08/21/2019 Dayana Jackson MD CHEMISTRY ORDERABLES Final Result * COLONOSCOPY (07/23/2015) Eran Ortega MD PROCEDURE/MINOR SURGICAL ORDER ANA CRISTINA Final Result from Last 3 Months or Most Recently Relevant to Health Maintenance Insurance MEDICARE C AETNA Care Teams Cable Splicing Technician Relationship Specialty Start Date End Date Eran Ortega MD Consulting Physician Gastroenterology 05/05/17
[2025-01-08 11:47] LABS: Anion Gap 13 mmol/L (4-12); Blood Urea Nitrogen 21 mg/dL (9-20); Calcium 10.6 mg/dL (8.4-10.2); Carbon Dioxide 24 mmol/L (22-30); Chloride 101 mmol/L (98-107); Estimated Glomerular Filt Rate > 60; Glucose 127 mg/dL (65-110); Sodium 138 mmol/L (137-145)
== END 2025-01-08 09:56 | disposition home or self-care (01) ==
LOC: ANHSURGERY 10:07
PROVIDERS: Visit Provider Neurological Surgery
DX: M47.816 Spondylosis without myelopathy or radiculopathy, lumbar region (principal); I10 Essential (primary) hypertension; Z01.818 Encounter for other preprocedural examination
CPT/HCPCS: 36415; 80048; 81003; 83036; 85027; 85610; 85730; 93005

== ENCOUNTER 2025-01-24 16:16 | Observation (INO) | payer MEDICARE, SELFPAY ==
--- NOTE | 2025-01-08 09:53 | PC.NURSE ---
Report to the Outpatient Waiting Room, entrance under the green pavilion located off [facility], at time __6 AM on date __01/23/25 . Planned Procedure Time: __7:30 AM .? Time changes happen often and if your time is changed the preop area will call you the afternoon before. - You and your visitor will be asked to self-screen and do not enter if you have any COVID symptoms. Please call surgeon if you need to reschedule. - A mask is optional within the hospital at this time. Patients may have clear liquids (water, carbonated beverages, clear teas, apple juice) until 3 hours prior to surgery ( 4:30 AM) with a maximum of 20 ounces. - No food from midnight until time of surgery and no smoking, or chewing tobacco (or any form of nicotine). No chewing gum, candy or mints. - Take only the following medications with a SIP of water on the morning of surgery: ___NONE DO NOT STOP ANY OF YOUR OTHER PRESCRIPTION MEDICATIONS PRIOR TO SURGERY EXCEPT THE FOLLOWING Hold all vitamins and supplements for 3 days per anesthesiologist. LAST DOSE 01/19/25 Medications to discontinue per physician _PT STATES __HOLD __ASPIRIN [address] MENON Date to take last dose 01/15/25 Please no make-up, nail danish, hairspray, perfume, deodorant, or body powder the day of surgery.? No jewelry (including any body piercings) or valuables the day of surgery, leave them at home.? Please take a shower or bath the night before, or the morning of, surgery with an antibacterial soap.? Wear comfortable, loose fitting clothing.? Children are encouraged to wear pajamas. - Jewelry must be removed prior to entering the operating room.? Rings and piercings that are not removed may be cut off. - The hospital will not accept responsibility for valuables.? - Please leave all valuables, including medications, at home the day of surgery. If you are going home after surgery, a licensed fast food delivery driver must drive you home.? - NO public transportation without another adult if you receive anesthesia. - We recommend that an adult stay with you for 24 hours following discharge. - We also recommend that you do not drive, make important decision, drink alcoholic beverages, or take any drugs that were not prescribed by your health care provider for at least 24 hours after your discharge time. Follow any additional instructions given to you from your surgeon. VERBAL AND WRITTEN instructions given to __PATIENT and asked if any additional questions and then verbalized understanding. Patient advised to call surgeon office or pre surgery nurse liaison [phone] if any additional questions.
[2025-01-08 10:11] VITALS: BMI 27.1
[2025-01-08 10:51] VITALS: BP 137/90; PULSE 79; RESP 18; TEMP 36.6; O2SAT 100
[2025-01-23] VITALS (16 sets, daily range): BP systolic 117–158; BP diastolic 65–89; PULSE 79–96; RESP 12–20; TEMP 35.6–36.4; O2SAT 94–100
--- OUTSIDE RECORDS SUMMARY | 2025-01-23 02:18 | XMS_ITS | Encounter Summary ---
Author Organization [facility] Address [address] [place] [address] Phone Care Team Providers Care Pulp Grinder Feeder Name Role Phone Dominick Brennan MD Primary Care Provider [phone] Eran Ortega MD Unavailable Unavailable Reason for Visit * Reason Comments Medication Refill Encounter Details Date Type Department Care Team (Late st Contact Info) Description 07/10/2021 Refill [facility] - Family Medicine [facility] [address] [place] [id number] Dominick Brennan MD [address] [address] Medication Refill Social History Tobacco Use Types [...] Total Score: 0 12/22/19 20 8:00 AM LEGAL BILLER documented as of this encounter Care Teams Pulp Grinder Feeder Relationship Specialty Start Date End Date Dominick Brennan MD [address] [address] PCP - General Family Medicine 09/04/15 01/19/23 Eran Ortega MD [address] [address] Consulting Physician Gastroenterology 05/05/17 documented as of this encounter
--- OUTSIDE RECORDS SUMMARY | 2025-01-23 02:18 | XMS_ITS | Encounter Summary ---
Author Organization [facility] Address [address] [place] [address] Phone Care Team Providers Care Semi Conductor Assembler Name Role Phone Dominick Brennan MD Primary Care Provider Eran Ortega MD Unavailable Unavailable Reason for Visit * Reason Comments Medication Refill Encounter Details Date Type Department Care Team (Late st Contact Info) Description 05/08/2021 Refill [facility] [address] [place] [address] Dominick Brennan MD [address] [address] Medication Refill Social History Tobacco Use Types [...] Total Score: 0 12/22/19 20 8:00 AM EMERGENCY DEPT TECH documented as of this encounter Care Teams Semi Conductor Assembler Relationship Specialty Start Date End Date Dominick Brennan MD [address] [facility] [address] [place] [address] PCP - General Family Medicine 09/04/15 01/19/23 Eran Ortega MD [address] [facility] [address] [place] [address] Consulting Physician Gastroenterology 05/05/17 documented as of this encounter
--- OUTSIDE RECORDS SUMMARY | 2025-01-23 02:18 | XMS_ITS | Referral Summary ---
Author Organization [facility] Address [address] [place] [address] Care Team Providers Care Orchardist Name Role Phone Dominick Brennan MD Primary Care Provider [phone] Pranav Charles MD Unavailable [phone] Allergies Active Allergy Reactions Criticality Noted Date [...] (01/22/2021): Added automatically from request for surgery [id number] Encounter for screening colonoscopy 01/22/2021 Overview (01/22/2021): Added automatically from request for surgery [id number] Inflamed seborrheic keratosis 03/03/2017 Papules 11/12/2015 Keratosis, [...] on file Legal Sex Male 12:46 AM TENNIS PLAYER Gender Identity Not on file Sexual Orientation Not on file Last Filed Vital Signs Vital Sign Reading Time Taken Comments Blood Pressure 150/96 12/29/2021 10:20 AM TENNIS PLAYER Pulse 73 12/29/2021 10:25 AM TENNIS PLAYER Temperature 36 C (96.8 F) 12/29/2021 9:55 AM TENNIS PLAYER Respiratory Rate 17 12/29/2021 10:25 AM TENNIS PLAYER Oxygen Saturation 99% 12/29/2021 10:25 AM TENNIS PLAYER Inhaled Oxygen Concentration - - Weight 74.8 kg (165 lb) 12/15/2021 11:40 AM TENNIS PLAYER Height 167.6 cm (5' 6 ) 12/15/2021 11:40 AM TENNIS PLAYER Body Mass Index 26.63 12/15/2021 11:40 AM TENNIS PLAYER Plan of Treatment Not on file Procedures Procedure Name Priority Date/Time Associated Diagnosis Comments COLONOSCOPY 03/10/2021 7:29 AM CDT from Last 3 Months or Most Recently Relevant to Health Maintenance Results * COLONOSCOPY (03/10/2021 7:29 AM CDT) Anatomical Region Laterality Modality Other Narrative Procedure Note Eran Ortega MD - 03/10/2021 7:29 AM CDT [facility] Patient Name: Zander Zhao Procedure Date: 03/10/2021 7:29 AM Date of : 1955 Admit Type: Outpatient Age: 65 Gender: Male Attending MD: Eran Ortega M.D. Room: [facility] ENDOSCOPY ROOM 2 Note Status: Finalized Patient [...] scope was passed under direct vision. TheColonoscope [id number] was introduced through the anus and advanced [...] 7:29 AM Procedure Code(s): --- Professional --- 58740, Colonoscopy, flexible; with biopsy, single or multiple Diagnosis Code(s): --- Professional --- K63.5, Polyp of colon K64.9, Unspecified hemorrhoids Z86.010, Personal history of colonic polyps CPT copyright 2019 [employer]. All rights reserved. The codes documented in this report are preliminary and upon beater engineer helper reviewmay be revised to meet current compliance requirements. Recognized by the [employer] for promoting quality in endoscopy Eran Ortega MD ENDOSCOPY PROCEDURES Final Re sult from Last 3 Months or Most Recently Relevant to Health Maintenance [facility]IC[facility] GOLD [facility] CHOICE PLUS Advance Directives For more information, please contact: [phone] * Full Code (Latest Code Status on File) Date Activated Date Inactivated Comments 03/10/2021 7:50 AM 03/10/2021 1:38 PM Care Teams Orchardist Relationship Specialty Start Date End Date Dominick Brennan MD [address] [address] PCP - General 12/23/21 Pranav Charles MD [address] [place] [place] [address] Consulting Physician Neurosurgery 12/29/21
--- OUTSIDE RECORDS SUMMARY | 2025-01-23 02:18 | XMS_ITS | Encounter Summary ---
Author Organization [facility] Address [address] [place] [address] Phone Care Team Providers Care Piping Engineer Name Role Phone Dominick Brennan MD Primary Care Provider Eran Ortega MD Unavailable Unavailable Reason for Visit * Reason Comments Medication Refill Encounter Details Date Type Department Care Team (Late st Contact Info) Description 09/18/2021 Refill [facility] [address] [place] [address] Dominick Brennan MD [address] [address] Medication Refill Social History Tobacco Use Types [...] PM CST Patient needs an appointment with PCP/MONUMENT INSTALLER prior to anymore refills OELECTRIC SYSTEMS TECHNICIAN * Telephone Encounter - Beatrice Garcia RN - 09/19/2021 2:22 PM CST 90 days on 09/08/21 OELECTRIC SYSTEMS TECHNICIAN documented in this encounter Plan of Treatment Not on file documented as of this encounter Visit Diagnoses Not on filedocumented in this encounter Additional Health Concerns Assessment Noted Time PHQ-9 Depression Total Score: 0 12/22/19 20 8:00 AM HYDROELECTRIC SYSTEMS TECHNICIAN documented as of this encounter Care Teams Piping Engineer Relationship Specialty Start Date End Date Dominick Brennan MD [address] [id number] PCP - General Family Medicine 09/04/15 01/19/23 Eran Ortega MD [address] [address] Consulting Physician Gastroenterology 05/05/17 documented as of this encounter
--- OUTSIDE RECORDS SUMMARY | 2025-01-23 02:18 | XMS_ITS | Clinical Summary ---
Author Organization [facility] Address [address] [place] [address] Care Team Providers Care Child Care Nurse Name Role Phone Dominick Brennan MD Primary Care Provider [phone] Pranav Charles MD Unavailable [phone] Allergies Active Allergy Reactions Criticality Noted Date [...] (01/22/2021): Added automatically from request for surgery [id number] Encounter for screening colonoscopy 01/22/2021 Overview (01/22/2021): Added automatically from request for surgery [id number] Inflamed seborrheic keratosis 03/03/2017 Papules 11/12/2015 Keratosis, [...] on file Legal Sex Male 12:46 AM SATELLITE DISH INSTALLER Gender Identity Not on file Sexual Orientation Not on file Obstetrics History Last Filed Vital Signs Vital Sign Reading Time Taken Comments Blood Pressure 150/96 12/29/2021 10:20 AM SATELLITE DISH INSTALLER Pulse 73 12/29/2021 10:25 AM SATELLITE DISH INSTALLER Temperature 36 C (96.8 F) 12/29/2021 9:55 AM SATELLITE DISH INSTALLER Respiratory Rate 17 12/29/2021 10:25 AM SATELLITE DISH INSTALLER Oxygen Saturation 99% 12/29/2021 10:25 AM SATELLITE DISH INSTALLER Inhaled Oxygen Concentration - - Weight 74.8 kg (165 lb) 12/15/2021 11:40 AM SATELLITE DISH INSTALLER Height 167.6 cm (5' 6 ) 12/15/2021 11:40 AM SATELLITE DISH INSTALLER Body Mass Index 26.63 12/15/2021 11:40 AM SATELLITE DISH INSTALLER Plan of Treatment Health Maintenance Due Date [...] Ortega MD - 03/10/2021 7:29 AM CDT Center Patient Name: Zander Zhao Procedure Date: 03/10/2021 7:29 AM Date of : 1955 Admit Type: Outpatient Age: 65 Gender: Male Attending MD: Eran Ortega M.D. Room: [facility] ENDOSCOPY ROOM 2 Note Status: Finalized [...] scope was passed under direct vision. TheColonoscope [id number] was introduced through the anus and advanced [...] 7:29 AM Procedure Code(s): --- Professional --- 695[address], Colonoscopy, flexible; with biopsy, single or multiple Diagnosis Code(s): --- Professional --- K63.5, Polyp of colon K64.9, Unspecified hemorrhoids Z86.010, Personal history of colonic polyps CPT copyright 2019 [employer]. All rights reserved. The codes documented in this report are preliminary and upon certified procedural coder reviewmay be revised to meet current compliance requirements. Recognized by the [employer] for promoting quality in endoscopy Eran Ortega MD ENDOSCOPY PROCEDURES Final Re sult from Last 3 Months or Most Recently Relevant to Health Maintenance Insurance [facility] REF AETNA MEDICARE GOLD [facility] CHOICE PLUS Advance Directives For more information, please contact: [phone] * Full Code (Latest Code Status on File) Date Activated Date Inactivated Comments 03/10/2021 7:50 AM 03/10/2021 1:38 PM Care Teams Child Care Nurse Relationship Specialty Start Date End Date Dominick Brennan MD [address] [place] [address] [address] PCP - General 12/23/21 Pranav Charles MD [address] [place] [address] [address] Consulting Physician Neurosurgery 12/29/21
--- OUTSIDE RECORDS SUMMARY | 2025-01-23 02:18 | XMS_ITS | Clinical Summary ---
Author Organization [facility] Address [address] [place] [address] Phone Care Team Providers Care Syrup Mixer Name Role Phone Alisha Benjamin Primary Care Provider [phone] Allergies Active Allergy Reactions Criticality Noted Date Comments Vince Inhibitors Other (See Comments) Low 01/02/2020 Cough Cough Medications aspirin-calcium carbonate 81 mg-300 mg calcium(777 mg) Tablet Take 81 mg by mouth. Active coenzyme Q10 100 mg Capsule Take 100 mg by mouth. Active Fish Oil-Gordon-3 Fatty Acids 360-1,200 mg Capsule Take 1,200 mg by mouth. Active sildenafiL (Viagra) 50 mg tabletIndication s:Erectile dysfunction, unspecified erectile dysfunction type Take 1 Tablet (50 mg) by mouth 1 time daily as needed for Erectile Dysfunction. 10 Tablet 1 3 Active rosuvastatin (CRESTOR) 10 mg tablet TAKE 1 TABLET (10 MG) BY MOUTH DAILY. 100 Tablet 3 4 Active telmisartan (MICARDIS) 80 mg TabletIndication s:Benign hypertension take 1 tablet by mouth every day 100 Tablet 3 4 Active metFORMIN (GLUCOPHAGE) 500 mg tablet TAKE 2 TABS BY MOUTH 2 TIMES DAILY (WITH MEALS). 360 Tablet 3 4 Active glipiZIDE (GLUCOTROL XL) 5 mg Extended Release 24 hour tabletIndication s:Type 2 diabetes mellitus with hyperglycemia, without long-term current use of insulin ([facility]) Take 1 Tablet (5 mg) by mouth daily. 4 Active blood sugar diagnostic (OneTouch Verio test strips) StripIndications :Type 2 diabetes mellitus with hyperglycemia, without long-term current use of insulin ([facility]) ASSESS BLOOD GLUCOSE 3 TIMES A DAY. DX: E11.65 200 Strip 3 5 Active traMADoL (ULTRAM) 50 mg tabletIndication s:Low back pain, unspecified back pain laterality, unspecified chronicity, unspecified whether sciatica present Take 1 Tablet (50 mg) by mouth every 6 hours as needed for Pain. 30 Tablet 5 5 Active traMADoL (ULTRAM) 50 mg tabletIndication s:Low back pain, unspecified back pain laterality, unspecified chronicity, unspecified whether sciatica present Take 1 Tablet (50 mg) by mouth every 6 hours as needed for Pain. 30 Tablet 3 5 01/11/20 25 Discontinu ed(Reorder ) Active Problems Problem Noted Date Diagnosed Date Benign hypertension 07/15/2020 Pure hypercholesterolemia 07/15/2020 Nephrolithiasis 07/15/2020 DDD (degenerative disc disease), lumbar 07/15/20 20 Type 2 diabetes mellitus wit h hyperglycemia, without long-term current use of insulin Encounters Date Type Department Care Team Description 01/10/2025 External Device Data STL ABSTRACTION Provider, Abstract 01/10/2025 [facility] Internal Medicine [facility] A [facility] [address] [place] [address] Alisha Benjamin, Low back pain, unspecified back pain laterality, unspecified chronicity, unspecified whether sciatica present 12/30/2024 External Device Data STL ABSTRACTION Provider, Abstract 12/29/2024 External Device Data STL ABSTRACTION Provider, Abstract 12/13/2024 External Device Data STL ABSTRACTION Provider, Abstract 12/01/2024 External Device Data STL ABSTRACTION Provider, Abstract 11/21/2024 External Device Data STL ABSTRACTION Provider, Abstract 11/13/2024 [facility] Internal Medicine [facility] A [facility] [address] [address] Alisha Benjamin, Type 2 diabetes mellitus with hyperglycemia, without long-term current use of insulin ([facility]) (Primary Dx) 10/25/2024 [facility] Internal Medicine [facility] [address] [address] Alisha Benjamin, DO Low back pain, unspecified back pain laterality, unspecified chronicity, unspecified whether sciatica present from Last 3 Months Immunizations Immunization Administration Dates Next Due (PREVNAR 13)(6 WKS UP) PNEUM OCOCCAL CONJUGATE (PCV13) 0.5 ML, IM 08/04/2021 (PREVNAR 20)(6 WKS UP) PNEUM OCOCCAL CONJUGATE VACCINE 20-VALENT (PCV20), POLYSACCHARIDE [id number] CONJUGATE, ADJUVANT 0.5 ML (PF) IM 09/24/2022 [...] Job Start Date Job End 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 [address] [place] [id number] Alisha Benjamin, [address] [id number] 10/01/2025 1:[address] SCIENTIST Office Visit [facility] Internal Medicine [facility] [address] [place] [id number] Alisha Benjamin, [address] [address] Health Maintenance Due Date Last Done Comments DTAP/TDAP/TD VACCINES (1 - Tdap) 1973 FIT-DNA Q 3 years 1999 FIT/FOBT Q 1 year 1999 Flex Sig/CT Colonography Q 5 years 1999 ZOSTER VACCINE (1 of 2) 2004 DIABETES ANNUAL RETINAL EXAM 02/12/2023, 12/27/2020, 12/08/2019 INFLUENZA VACCINE (#1) 2024 3, 09/24/2022, 08/04/2021, Additional history exists COVID-19 Vaccine [...] hyperglycemia, without long-term current use of insulin ([facility]) COMPREHENSIVE METABOLIC PANEL Routine 08/16/2024 9:19 AM CDT Type 2 diabetes mellitus with hyperglycemia, without long-term current use of insulin ([facility]) LIPID PANEL Routine 08/16/2024 9:19 AM CDT Type 2 diabetes mellitus with hyperglycemia, without long-term current use of insulin ([facility]) HEMOGLOBIN A1C Routine 08/16/2024 9:19 AM CDT Type 2 diabetes mellitus with hyperglycemia, without long-term current use of insulin ([facility]) HM DIABETES EYE EXAM Routine 02/12/2022 ENDOSCOPY, COLON, SCREENING Routine 03/10/2021 from Last 3 Months or Most Recently Relevant to Health Maintenance Results * MICROALBUMIN/CREATININE RATIO, RANDOM UR (08/16/2024 9:20 AM CDT) Creatinine, Urine 100 20 - 320 mg/dL [facility] MICROALBUMIN, URINE <0.2 See Note: mg/dL [facility] Comment: Reference Range: Reference Range Not established MICROALBUMIN/CREAT RATIO, UR NOTE <30 mg/g creat [facility] Comment: NOTE: The urine albumin value [...] category. FASTING:YES FASTING: YES Test Performed at: [facility] [address] [place] [address] Estrella Medina MD Urine URINE SPECIMEN OBTAINED BY CLEAN CATCH PROCEDURE / Unknown 08/16/2024 9:20 AM CDT 08/16/2024 9:21 AM CDT Alisha Benjamin DO URINE ORDERABLES Final Result [facility] [phone] [facility] [address] [address] [address] * (ABNORMAL) HEMOGLOBIN A1C (08/16/2024 9:19 AM CDT) HEMOGLOBIN A1C 6.0(H) <5.7 % of total Hgb [facility] Comment: For someone without known diabetes, [...] children. ESTIMATED AVERAGE GLUCOSE (MG/DL) 126 mg/dL [facility] ESTIMATED AVERAGE GLUCOSE (MMOL/L) 7.0 mmol/L [facility] Comment: FASTING:YES FASTING: YES Test Performed at: [facility] [address] [address] [place] [address] Estrella Medina Blood 08/16/2024 9:19 AM CDT 08/16/2024 9:19 AM CDT Alisha Benjamin DO CHEMISTRY ORDERABLES Final Re sult [facility] [phone] [facility] [address] [address] [place] [address] * LIPID PANEL (08/16/2024 9:19 AM CDT) CHOLESTEROL 114 <200 mg/dL [facility] HDL 54 > OR = 40 mg/dL [facility] TRIGLYCERIDE 84 <150 mg/dL [facility] LDL CALCULATED 44 mg/dL (calc) [facility] Comment: Reference range: <100 Desirable range <100 mg/dL for primary prevention; <70 mg/dL for patients with CHD or diabetic patients with > or = 2 CHD risk factors. LDL-C is now calculated using the Edmond calculation, which is a validated novel method providing better accuracy than the Friedewald equation in the estimation of LDL-C. Jeet SS et al. MAKENZIE. 2013;310(19): 2772-7882 (http://education.Intio/faq/BKO639) CHOL/HDL RATIO 2.1 <5.0 (calc) [facility] NON-HDL CHOLESTEROL 60 <130 mg/dL (calc) [facility] Comment: For patients with diabetes plus 1 major ASCVD risk factor, treating to a non-HDL-C goal of <100 mg/dL (LDL-C of <70 mg/dL) is considered a therapeutic option. Test Performed at: [facility] [address] [place] [phone] Estrella Medina MD Blood 08/16/2024 9:19 AM CDT 08/16/2024 9:19 AM CDT us Alisha Benjamin DO CHEMISTRY ORDERABLES Final Re sult [facility] [phone] [facility] [address] [place] [address] * (ABNORMAL) COMPREHENSIVE METABOLIC PANEL (08/16/2024 9:19 AM CDT) GLUCOSE 85 65 - 99 mg/dL [facility] Comment: Fasting reference interval BUN 20 7 - 25 mg/dL [facility] CREATININE 0.87 0.70 - 1.28 mg/dL [facility] GFR 93 > OR = 60 mL/min/1. 73m2 [facility] BUN/CREAT RATIO SEE NOTE: (calc) [facility] Comment: Not Reported: BUN and Creatinine [...] Comment: FASTING:YES FASTING: YES Test Performed at: [facility] [address] [place] [address] Estrella Medina MD Blood 08/16/2024 9:19 AM CDT 08/16/2024 9:19 AM CDT us Alisha Benjamin DO CHEMISTRY ORDERABLES Final Re sult [facility] [phone] [facility] [address] [place] [address] * DIABETES EYE EXAM (02/12/2022) us Abstract Provider HEALTH MAINTENANCE Final Resul t [facility] MD CLIA# [id number] [address] [address] * ENDOSCOPY, COLON, SCREENING (03/10/2021) Alisha Benjamin DO GI PROCEDURE ORDERABLES Final Result [facility] CLIA# [id number] [address] [address] from Last 3 Months or Most Recently Relevant to Health Maintenance Insurance [facility] [id number] [facility] MCR Advance Directives For more information, please contact: [phone] Documents on File Type Date Recorded Patient Private Mortgage Banker Safe Expl anation Advance Directive POA 07/26/2020 12:21 PM Advance Directive POA Care Teams Syrup Mixer Relationship Specialty Start Date End Date Alisha Benjamin DO [address] [facility] [address] [place] [address] PCP - General Internal Medicine 07/15/20
--- OUTSIDE RECORDS SUMMARY | 2025-01-23 02:18 | XMS_ITS | Clinical Summary ---
Author Organization [facility] Address [address] [place] [address] Phone Care Team Providers Care Assistant Professor Of Music Name Role Phone Eran Ortega MD Unavailable Unavailable Allergies Active Allergy Reactions Criticality Noted Date Comments Vince Inhibitors Other (see Comments) Cough Medications [place]-3 Fatty Acids (FISH OIL) 1200 MG Capsule [...] - 144 mmol/L 07/03/2020 11:10 AM CDT [facility] POTASSIUM 4.8 3.5 - 5.1 mmol/L 07/03/2020 11:10 AM CDT [facility] CHLORIDE 98(L) 100 - 110 mmol/L 07/03/2020 11:10 AM CDT [facility] CO2, VENOUS 27 22 - 32 mmol/L 07/03/2020 11:10 AM CDT [facility] ANION GAP 13.8 8.0 - 20.0 mmol/L 07/03/2020 11:10 AM CDT [facility] GLUCOSE 180(H) 70 - 99 mg/dL 07/03/2020 11:10 AM CDT [facility] BUN 23 8 - 23 mg/dL 07/03/2020 11:10 AM CDT [facility] CREATININE, BLOOD 0.69(L) 0.80 - 1.30 mg/dL 07/03/2020 11:10 AM CDT [facility] BUN/CREATININE RATIO 33(H) 12 - 20 ratio 07/03/2020 11:10 AM CDT [facility] TOTAL PROTEIN 7.0 6.0 - 8.3 g/dL 07/03/2020 11:10 AM CDT [facility] ALBUMIN 4.7 3.5 - 5.2 g/dL 07/03/2020 11:10 AM CDT [facility] Comment: The colormetric methods used for the determination of Albumin may lead to falsely elevated test results in patients suffering from renal failure or insufficiency due to interference with other proteins. A/G RATIO 2.0 1.0 - 2.0 07/03/2020 11:10 AM CDT [facility] CALCIUM 10.1 8.9 - 10.3 mg/dL 07/03/2020 11:10 AM CDT [facility] T BILI 0.9 <=1.2 mg/dL 07/03/2020 11:10 AM CDT [facility] SGOT (AST) 21 <=40 U/L 07/03/2020 11:10 AM CDT [facility] SGPT (ALT) 35 <=41 U/L 07/03/2020 11:10 AM CDT [facility] ALKALINE PHOSPHATASE 78 40 - 130 U/L 07/03/2020 11:10 AM CDT [facility] GFR, EST. NONAFRICAN >60 >=60 07/03/2020 11:10 AM CDT [facility] GFR, EST. >60 >=60 020 11:10 AM CDT [facility] Comment: Creatinine Clearance is the preferred criteria for selecting drug dose adjustments in renally impaired patients. The GFR is provided as additional pertinent clinical information. GFR is reported in mL/min/1.73 sq m. Blood Venipuncture / Unknown 07/03/2020 9:14 AM CDT 07/03/2020 10:22 AM CDT us Yue Meek MD CHEMISTRY ORDERABLES Final Resul t [facility] [address] [place] [address] * (ABNORMAL) POCT GLYCOSYLATED HEMOGLOBIN (06/25/2020 3:55 [...] Maintenance Insurance MEDICARE C [employer] Care Teams Assistant Professor Of Music Relationship Specialty Start Date End Date Eran Ortega MD Consulting Physician Gastroenterology 05/05/17
[2025-01-23] MEDS: LACTATED RINGERS 1,000 ML 30 ML IV CONT ×3 (06:30→12:01)
[2025-01-23 06:31] LABS: Glucose Point of Care 102 mg/dl (65-105)
--- NOTE | 2025-01-23 07:27 | P.PNAN_ITS ---
Anes - Initial Pre Proc Eval Procedure: Operation Date: 01/23/25 07:30 Proposed Procedures p L4-5, L5-S1 Posterior Lumbar Interbody Fusion - Pranav Charles MD Date/Time: 01/23/25 07:27 Surgeon: Pranav Charles MD Pre Op Diagnosis: L4-5, L5-S1 spondylosis, neuroforaminal narrowing Patient Data Age: 69 Gender: M Height: 1.65 m Weight: 73.8 kg Last Vital Signs Temp 97.0 F L 01/23/25 07:00 Pulse 83 01/23/25 07:00 Resp 19 01/23/25 07:00 BP 158/80 H 01/23/25 07:00 Pulse Ox 100 01/23/25 07:00 O2 Del Method Room Air 01/23/25 07:00 Allergies Allergy/AdvReac Type Severity Reaction Status Date / Time No Known Drug Allergies Allergy none Verified 01/23/25 06:57 Home Medications ?Medication ?Instructions ?Recorded ?Confirmed ?Type metformin 1,000 mg tablet 1,000 mg PO DAILY 05/04/22 01/23/25 History rosuvastatin 40 mg tablet 40 mg PO DAILY 05/04/22 01/23/25 History telmisartan 80 mg tablet 80 mg PO DAILY 05/04/22 01/23/25 History berberine chloride 500 mg capsule 500 mg PO BID 05/23/24 01/23/25 History coenzyme Q10 100 mg capsule 100 mg PO DAILY 05/23/24 01/23/25 History glipizide 5 mg tablet 5 mg PO HS 05/23/24 01/23/25 History omega 8-gor-etq-fish oil 100 1 cap PO DAILY 05/23/24 01/23/25 History mg-160 mg-1,000 mg capsule tramadol 50 mg tablet 50 mg PO Q6H PRN pain 05/23/24 01/23/25 History cyclobenzaprine 10 mg tablet 10 mg PO TID #30 tabs 09/26/24 01/23/25 Rx aspirin 81 mg capsule 81 mg PO HS 01/08/25 01/23/25 History famotidine 20 mg tablet (Pepcid) 20 mg PO PRN HEARTBURN 01/08/25 01/23/25 History Laboratory Tests 01/23/25 01/23/25 06:20 06:28 POC Capillary Glucose 102 mg/dl (65-105) Blood Type O Positive Antibody Screen Negative Patient hx anesthesia problems: none Family hx anesthesia problems: none Results Review: All pre-operative results and documents have been reviewed as part of the pre- operative evaluation. [facility]LY [facility], [facility] Past Medical History Medical History Diabetes Hypercholesteremia Hypertension Kidney stones Surgical History Surgical History History of lumbar surgery Family History Family History Other Cancer Diabetes mellitus Heart disease Social History Social History Smoking status: Never smoker Alcohol intake: current Substance use: never Substance use type: does not use Do You Feel Safe in your Home?: Yes Lack of Transportation: No Lack of Food: Never True Current Housing: I Have Housing Concerned About Future Housing: No Difficulty Paying Gas/Electric Bills: No Difficulty Paying for Meds: No Currently Unemployed: No Education: High School Diploma/GED Difficulty w/ Childcare or Family Care: No Living arrangements: with family Lisa Mackay Final PreProcedure Day of Procedure 01/23/25 07:27 Patient weight: normal Heart: regular rate and rhythm Lungs: clear to auscultation Airway: Mallampati scale class II Neurological: alert and oriented Last oral intake: >/= 8 hours ASA classification: III Emergent: no Anesthetic plan: proceed Anesthesia type and monitoring: general ETT and standard monitoring Results Review: All pre-operative results and documents have been reviewed as part of the pre- operative evaluation. Informed Consent: The patient's anesthetic plan and its attendant risks and benefits were discussed with the patient/family/POA. Questions were solicited and answers provided to the satisfaction of the patient/family/POA.
--- NOTE | 2025-01-23 08:02 | P.HP_ITS ---
H&P: HPI History of Present Illness Date/Time: 01/23/25 08:02 Chief Complaint: Back and leg pain Narrative: Zander has not changed appreciably since we last saw him. About 2 years ago he underwent a left-sided L5-S1 foraminotomy. He is having discomfort that radiates into his left lower extremity down to about the ankle. Most of the pain is proximal, at this point, not extending much past his hip. He has in the past had pain that extended all the way across the top of the foot to the big toe. It is with him most of the time. His back is also sore and uncomfortable and this is worse 1st thing in the morning. He worsens with activity such as standing and walking. He does not report specific muscle group weakness or dermatomal numbness. He is not having bowel or bladder difficulty. He has not undergone any particular treatment and has not had any imaging thus far. His pain is limiting and distracting for him daily and at times quite severe. Recently done injections did not seem to have much of a positive affect in a lasting way. He has had progressive difficulty since before the of the year. Review of Systems Review of Systems: All systems reviewed & are unremarkable except as noted in HPI and below Denies chills, Denies fever(s), Denies weakness, Denies weight gain and Denies weight loss Eyes Denies change in vision and Denies diplopia ENT Denies neck pain and Denies disequilibrium Card Denies chest pain and Denies dyspnea Resp Denies cough and Denies dyspnea GI Denies abdominal pain, Denies change in bowel habits, Denies fecal incontinence and Denies vomiting Denies hematuria, Denies oliguria, Denies difficulty urinating, Denies dysuria, Denies urinary frequency, Denies urinary hesitancy, Denies urinary incontinence and Denies urinary urgency Musc Reports as per HPI, Reports back pain, Denies muscle weakness, Denies neck pain, Reports numbness and Denies stiffness Skin/ Breast Reports system reviewed and no additional complaints, except as documented Neuro Reports as per HPI, Denies burning sensations, Denies focal weakness, Reports numbness, Denies Other visual disturbances, Reports radicular pain, Reports paresthesias, Denies disequilibrium and Denies weakness Psych Reports no additional complaints, Denies depression and Denies hopelessness Endo Reports no additional complaints and Denies polyuria Miguel Angel/ Lymph Reports no additional complaints Aller/ Immun Reports no additional complaints [facility] Past Medical History Medical History Diabetes Hypercholesteremia Hypertension Kidney stones Surgical History Surgical History History of lumbar surgery Family History Family History Other Cancer Diabetes mellitus Heart disease Social History Social History Smoking status: Never smoker Alcohol intake: current Substance use: never Substance use type: does not use Do You Feel Safe in your Home?: Yes Lack of Transportation: No Lack of Food: Never True Current Housing: I Have Housing Concerned About Future Housing: No Difficulty Paying Gas/Electric Bills: No Difficulty Paying for Meds: No Currently Unemployed: No Education: High School Diploma/GED Difficulty w/ Childcare or Family Care: No Living arrangements: with family Meds Home Medications and Allergies Home Medications ?Medication ?Instructions ?Recorded ?Confirmed ?Type metformin 1,000 mg tablet 1,000 mg PO DAILY 05/04/22 01/23/25 History rosuvastatin 40 mg tablet 40 mg PO DAILY 05/04/22 01/23/25 History telmisartan 80 mg tablet 80 mg PO DAILY 05/04/22 01/23/25 History berberine chloride 500 mg capsule 500 mg PO BID 05/23/24 01/23/25 History coenzyme Q10 100 mg capsule 100 mg PO DAILY 05/23/24 01/23/25 History glipizide 5 mg tablet 5 mg PO HS 05/23/24 01/23/25 History omega 8-sxm-ixg-fish oil 100 1 cap PO DAILY 05/23/24 01/23/25 History mg-160 mg-1,000 mg capsule tramadol 50 mg tablet 50 mg PO Q6H PRN pain 05/23/24 01/23/25 History cyclobenzaprine 10 mg tablet 10 mg PO TID #30 tabs 09/26/24 01/23/25 Rx aspirin 81 mg capsule 81 mg PO HS 01/08/25 01/23/25 History famotidine 20 mg tablet (Pepcid) 20 mg PO PRN HEARTBURN 01/08/25 01/23/25 History Allergies Allergy/AdvReac Type Severity Reaction Status Date / Time No Known Drug Allergies Allergy none Verified 01/23/25 06:57 Vital Signs Vital Signs - 24 hr 01/23/25 07:00 Temperature 97.0 F L Pulse Rate 83 Respiratory Rate 19 Blood Pressure 158/80 H Pulse Oximetry 100 Oxygen Delivery Room Air Exam Narrative: General: cooperative, no acute distress, well developed, alert and awake Orientation/Consciousness: oriented to person, oriented to place and oriented to time Constitutional Limitations: no limitations Other: The patient is a normally developed, normal appearing male sitting on the examination table in no acute distress. He is awake, alert, and oriented x3 with good fund of knowledge, recall of events, and fluent speech. HENMT Head: normocephalic and atraumatic Ears: external ears normal Face/Nose/Sinus: Normal external nose present Eyes Eyelids: eyelids normal Pupils: Yes Pupils normal by confrontation EOM: EOMs intact bilaterally Neck General: Yes no meningeal signs, Yes supple and Yes no JVD Resp Effort/Inspection: normal respiratory effort and able to speak in complete sentences Cardio Rate: Yes regular rate GI Inspection: No abdominal distension Musc Other: Examination of the back reveals no tenderness. Range of motion of the back is full without pain in forward flexion, extension, and lateral rotation to both sides. Straight leg raise is negative bilaterally. Ramu?s test is negative bilaterally. Skin General: normal color Neuro General: Yes oriented to person, Yes oriented to place, Yes oriented to time, Yes normal cognition and Yes no meningeal signs Cranial Nerves: Yes CN's II-XII intact bilaterally Other: Motor: Strength is normal, 5/5, throughout all muscle groups of the bilateral upper and lower extremities to direct confrontation. Sensory: Sensation is intact to light touch throughout the upper and lower extremities bilaterally. Reflexes: Deep tendon reflexes 2+ equal and symmetric at the knees and ankles bilaterally, 3+ at the biceps, triceps, and brachioradialis bilaterally. There is positive ankle clonus on the right, no ankle clonus on the left. Palumbo's sign is negative bilaterally. Gait: Gait, station, and transfers are independent and steady for short periods of time and over short distances. Psych Appearance: grossly normal Mental status: Yes mental status grossly normal Mood: congruent mood Affect: Yes normal affect Speech/Movement: Normal speech and movement present Attitude: Yes cooperative Thought Content: Normal thought content present Assessment and Plan Assessment and plan (1) Foraminal stenosis of lumbar region: Code(s): M48.061 - Spinal stenosis, lumbar region without neurogenic claudication Status: Acute (2) Lumbar spondylosis: Code(s): M47.816 - Spondylosis without myelopathy or radiculopathy, lumbar region Status: Acute Plan Nick is a 69-year-old gentleman with back and leg pain likely still related to the L4-5 and L5-S1 levels and neural compression in the foramina of related to spondylosis and disc level degeneration. He has failed injection treatments as well as simple decompressive surgery which was repeated in the last couple of years. I therefore recommend radical decompression and fusion at L4-5 and L5-S1 and I described him at L4-5 and L5-S1 posterior lumbar interbody fusion, its risks, potential benefits, the operative and postoperative course in detail and answered all his questions personally. We discussed risks including but not limited to permanent neurologic deficit secondary to nerve root injury, need for reoperation secondary to infection, bleeding, CSF leak, adjacent level disease, recurrent residual pathology, malposition migration of the hardware or nonunion, failure of the procedure to relieve his pain or symptoms, persistent pain, medical complications related anesthesia or surgery, etc.. He indicates understanding and elects to proceed with that operation. I believe that this operation is the most likely thing to make him immediately and permanently better with regard to the pathology at the L4-5 and L5-S1 levels.
--- NOTE | 2025-01-23 08:04 | WPDHPUPDATE1 ---
History and Physical Update Update Date/Time: 01/23/25 08:04 History and Physical has been reviewed, including an updated exam of the patient. There are NO changes in the patient's condition. Risks, benefits, and alternatives have been discussed and questions answered. Patient agrees to proceed with procedure.
[2025-01-23] MEDS: ceFAZolin 2 GM/D5W 50 ML 2 GM/50 ML BAG IVPB (08:06)
[2025-01-23] MEDS: LIDO 1%/EPINEPHRINE 1:100,000 50 ML VIAL 10 ML INFILTRATE (09:15)
[2025-01-23] MEDS: HYDROmorphone HCL INJ (*CRX) 1 MG/ML SYR 0.5 MG IV PUSH ×6 (11:40→12:25)
[2025-01-23 11:52] LABS: Glucose Point of Care 161 mg/dl (65-105)
--- NOTE | 2025-01-23 11:56 | P.OP_ITS ---
Procedure Note - Detailed Date of Procedure 01/23/25 Pre-op Diagnosis L4-5, L5-S1 spondylosis, neuroforaminal narrowing Post-op Diagnosis Same Procedure Performed L4-5 and L5-S1 complete laminectomy bilateral facetectomy, L4-5 and L5-S1 complete diskectomy and interbody arthrodesis utilizing titanium interbody devices and local autograft, L4-5 and L5-S1 pedicle screw instrumentation Surgeon Pranav Charles MD Anesthesia General Description of Procedure the patient was brought to the operating room in the supine position, was sedated, intubated placed under general anesthesia in routine fashion. He was then turned into the prone position on the an open Christopher table. The of operation on his back was examined, marked for incision, prepped and draped in routine sterile fashion. Incision was marked over the L4 through S1 spinous processes in the midline. This area was injected with 0.5% lidocaine with 1- [id number] epinephrine. Intravenous antibiotics given prior to incision. Incision was made with a 10 blade scalpel down to the lumbodorsal fascia. A subperiosteal dissection of the muscle soft tissue away from spinous process and lamina was performed with a subperiosteal elevator and Bovie cautery. A verifying x-rays obtained to verify the level of operation. The L4-L5 spinous processes were removed with a Silva rongeur. Kerrison punches, curved curettes and a Leksell rongeur used to remove lamina in the midline and to the soft contents of the canal were encountered. Midas-Sen drill was used to resect the pars bilaterally at L4 and L5 bilaterally. The inferior articular process and facet of L4-L5 could then be removed. These places spinous process were stripped free of soft tissue and morselized for later use as interbody autograft. Kerrison punches and curved curettes were used to define a plane with the dura and removed bone ligament flush with the pedicle and through the foramina widely decompressing the exiting nerve roots. With the thecal sac retracted and protected disc space was entered bilaterally using an 11 blade scalpel. Scrapers a very sizes, curettes of various configurations, pituitary rongeur and rasp were used to remove as much cartilaginous endplate and disc material as possible down to bleeding cortical flat surfaces on the opposing bones. The disc space was then sized an 8 mm interbody devices were chosen at both levels on both sides. These were filled with local autograft bone. The disc space was likewise filled with local autograft bone medially and anteriorly. The interbody devices were then placed 2-3 mm countersink within the disc space bilaterally. Pedicle screw instrumentation was performed at L4 through S1 by observing and palpating the pedicle while a hole was made superior to process above the pedicle using a Midas Sen drill. The pedicle was cannulated with a pedicle probe, checked for continuity with the ball probe, tapped with a 5.5 mm tap and a 6.5 by 50 mm screw was placed in each pedicle on each side. Rods were placed in the screw heads on either side and secured in position using the caps that purpose. These were definitively tightened with a torque and anti torque device. A verifying x-rays obtained to verify good position of the instrumentation which was confirmed. The wound was then copiously irrigated with bacitracin irrigation all bleeding stopped with bipolar and Bovie cautery and Gelfoam thrombin powder. The wound was then closed in layered fashion after a medium Hemovac drain was left in the subfascial position buried out to the inferior right of the incision. 2-0 Vicryl interrupted sutures were placed in the lumbodorsal fascia and Avelino's layer. 3-0 Vicryl buried interrupted sutures were placed in the dermis and the skin was closed with a running 4-0 Monocryl subcuticular stitch and dressed with Dermabond. The patient was allowed to wake up in the operating room and was taken to the recovery room in stable condition. There were no immediate complications of this operation. All counts were reported correct at the end the case. Blood loss was 400 cc. The patient was neurologically at his baseline postoperatively. CPT codes: 06064, 10373, 78769, 56756, 78872, 91267 x 2, 47865 x 2 Implants titanium interbody devices and pedicle screw instrumentation Estimated Blood Loss 400 Drains Yes Complications None Condition Stable Disposition PACU [facility] Billing Surgery - Charge Forward: Surgery Billing
[2025-01-23] MEDS: fentaNYL CITRATE INJ (*CRX) 100 MCG/2 ML VIAL 25 MCG IV PUSH ×2 (13:28→13:32)
[2025-01-23] MEDS: KCL 20 MEQ/D5/0.45% SOD CHL 1,000 ML 100 ML IV CONT (14:13)
[2025-01-23] MEDS: CYCLOBENZAPRINE HCL 10 MG TABLET PO ×3 (14:13→19:50)
[2025-01-23] MEDS: HYDROcodone/acetaminophen (*CRX) 10-325 MG TABLET 1 TAB PO ×2 (15:00→19:48)
[2025-01-23] MEDS: ceFAZolin 1 GM/NS 50 ML 1 GM/50 ML BAG IVPB ×2 (15:21→23:01)
[2025-01-23] MEDS: glipiZIDE 5 MG TABLET PO (17:23)
[2025-01-23] MEDS: DOCUSATE SODIUM 100 MG CAPSULE PO (19:48)
[2025-01-23] MEDS: HYDROcodone/acetaminophen (*CRX) 5-325 MG TABLET 1 TAB PO (20:59)
--- NOTE | ~2025-01-24 | XR_ITS ---
XR fluoroscopy no charge Indication: L4-5, L5-S1 posterior lumbar interbody fusion TECHNIQUE: Fluoroscopy used during L4-5, L5-S1 posterior lumbar interbody fusion performed by [Jose Eduardo Charles MD] on 01/23/2025. 4 seconds of fluoroscopy time with one fluoroscopic images captu red. FINDINGS: Correlate with procedure note. IMPRESSION: Fluoroscopy used during L4-5, L5-S1 posterior lumbar interbody fusion. Reviewed, dictated and finalized at location A. IMPRESSION: Fluoroscopy used during L4-5, L5-S1 posterior lumbar interbody fusi on.
[2025-01-24 00:07] VITALS: BP 100/68; PULSE 78; RESP 16; TEMP 36.6; O2SAT 99
[2025-01-24] MEDS: HYDROcodone/acetaminophen (*CRX) 10-325 MG TABLET 1 TAB PO ×3 (02:27→11:09)
[2025-01-24 06:44] VITALS: BP 111/67; PULSE 80; RESP 16; TEMP 37.1; O2SAT 100
[2025-01-24] MEDS: OMEGA 3 POLYUNSAT FATTY ACIDS 1 GM CAP PO (08:14)
[2025-01-24] MEDS: metFORMIN HCL 500 MG TABLET 1000 MG PO ×2 (08:14→17:03)
[2025-01-24] MEDS: DOCUSATE SODIUM 100 MG CAPSULE PO ×2 (08:14→19:52)
[2025-01-24] MEDS: TELMISARTAN 40 MG TABLET 80 MG PO (08:14)
[2025-01-24] MEDS: CYCLOBENZAPRINE HCL 10 MG TABLET PO ×4 (08:14→19:52)
[2025-01-24] MEDS: ROSUVASTATIN 20 MG TABLET 40 MG PO (08:15)
[2025-01-24] MEDS: ceFAZolin 1 GM/NS 50 ML 1 GM/50 ML BAG IVPB ×3 (08:15→22:58)
[2025-01-24] MEDS: HYDROmorphone HCL INJ (*CRX) 1 MG/ML SYR 0.5 MG IV PUSH (08:39)
[2025-01-24] MEDS: KCL 20 MEQ/D5/0.45% SOD CHL 1,000 ML 30 ML IV CONT (13:11)
[2025-01-24 14:51] VITALS: BP 134/69; PULSE 103; RESP 18; TEMP 36.3; O2SAT 99
[2025-01-24] MEDS: oxyCODONE/ACETAMINOPHEN (*CRX) 10-325 MG TABLET 1 TAB PO (15:11)
--- NOTE | 2025-01-24 15:48 | WPDANESPN ---
Anes - Prog Note Post-Op Date/Time: 01/24/25 15:48 Cardiovascular status: normal Respiratory status: normal Airway patency: baseline Mental status: baseline Post-Op hydration status: normal Vital Signs: Last Vital Signs Temp 37.1 C 01/24/25 06:44 Pulse 80 01/24/25 06:44 Resp 16 01/24/25 06:44 BP 111/67 01/24/25 06:44 Pulse Ox 100 01/24/25 06:44 O2 Del Method Room Air 01/24/25 08:43 O2 Flow Rate 8 01/23/25 11:45 Pain Score (VAS): 2 I/O: Intake & Output 01/23/25 01/24/25 01/24/25 23:59 07:59 15:59 Intake Total 938.3 768.4 Output Total 1200 2010 Balance -261.7 -2009 768.4 Post-procedural complaints: none Patient Feedback: Patient satisfied with anesthetic care.
--- NOTE | 2025-01-24 16:04 | WPDNEUROSGPN ---
Progress Note: A&P Assessment and Plan (1) Status post lumbar spinal arthrodesis: Code(s): Z98.1 - Arthrodesis status Status: Acute Plan -Remove stewart catheter -Keep hemovac drain -Will adjust medications to scheduled Tylenol and prn oxycodone -PT/OT Subjective Date/time seen: 01/24/25 16:04 Interval history: Having a fair amount of pain in the lower back despite medication. No pain into the legs. He ambulated with therapy. High drain output since surgery, appears bloody HV >600cc out in last 24 hours Review of Systems Review of Systems: All systems reviewed & are unremarkable except as noted in HPI and below Exam Narrative: AOx4 Incision c/d/i FUll strength in lower extremities Sensation intact to light touch Objective Data Vital Signs Vital Signs: Vital Signs - 24 hr 01/23/25 19:54 01/23/25 20:00 01/24/25 00:07 Temperature 97.6 F 97.9 F Pulse Rate 89 78 Respiratory Rate 16 16 Blood Pressure 120/65 100/68 Pulse Oximetry 99 99 Oxygen Delivery Room Air 01/24/25 06:44 01/24/25 08:15 01/24/25 08:43 Temperature 98.7 F Pulse Rate 80 Respiratory Rate 16 Blood Pressure 111/67 Pulse Oximetry 100 Oxygen Delivery Room Air Room Air 01/24/25 14:51 Temperature 97.4 F L Pulse Rate 103 H Respiratory Rate 18 Blood Pressure 134/69 Pulse Oximetry 99 Oxygen Delivery Intake/Output Intake/Output: Intake & Output 01/21/25 01/22/25 01/23/25 01/24/25 23:59 23:59 23:59 23:59 Intake Total 1751.6 1008.4 Output Total 1540 2009 Balance 211.6 -1001.6 Meds/Results Medications: Active Medications Generic Name Dose Route Start Last Admin Trade Name Freq PRN Reason Stop Dose Admin Al Hydrox/Mg Hydrox/Simethicone 20 ml 01/23/25 11:50 Mag Hydrox/Al Hydrox/Simeth 30 Ml Udc PO Q4H PRN Indigestion/Heartburn Bisacodyl 10 mg 01/23/25 11:50 Bisacodyl 10 Mg Suppository RECTAL DAILY PRN Constipation Cyclobenzaprine HCl 10 mg 01/23/25 11:50 01/23/25 19:50 Cyclobenzaprine Hcl 10 Mg Tablet PO 10 mg TID PRN Administration Muscle Spasms Cyclobenzaprine HCl 10 mg 01/23/25 13:47 01/24/25 13:10 Cyclobenzaprine Hcl 10 Mg Tablet PO 10 mg TID LUIS Administration Docusate Sodium 100 mg 01/23/25 21:00 01/24/25 08:14 Docusate Sodium 100 Mg Capsule PO 100 mg Q12HR LUIS Administration Fish Oil 1 gm 01/24/25 09:00 01/24/25 08:14 [place] 3 Polyunsat Fatty Acids 1 Gm Cap PO 1 gm QAM LUIS Administration Glipizide 5 mg 01/23/25 17:00 01/23/25 17:23 Glipizide 5 Mg Tablet PO 5 mg DAILY@1700 LUIS Administration Hydromorphone HCl 0.5 mg 01/23/25 11:50 01/24/25 08:39 Hydromorphone Hcl Inj (*Crx) 1 Mg/Ml Syr IV PUSH 0.5 mg Q2H PRN Administration Pain Rated 7-10 Cefazolin Sodium 1 gm in 50 mls @ 100 mls/hr 01/23/25 16:00 01/24/25 15:11 Ancef 1 Gm/Ns 50 Ml IVPB 100 mls/hr Q8H LUIS Administration Potassium Chloride/Dextrose/Sod Cl 1,000 mls @ 100 mls/hr 01/23/25 11:50 01/24/25 13:11 Kcl 20 Meq/D5/0.45% Sod Chl IV CONT 30 mls/hr .Q10H LUIS Administration Metformin HCl 1,000 mg 01/24/25 08:00 01/24/25 08:14 Metformin Hcl 500 Mg Tablet PO 1,000 mg BIDWM LUIS Administration Non-Formulary Medication 1 each 01/24/25 07:52 Nonformulary Nutritional Supplement XX 01/25/25 07:51 PRN PRN PROTOCOL Ondansetron HCl 4 mg 01/23/25 11:50 Ondansetron Inj 4 Mg/2 Ml Vial IV PUSH Q8H PRN Nausea And Vomiting Oxycodone/Acetaminophen 1 tablet 01/24/25 11:14 Oxycodone/Acetaminophen (*Crx) 5-325 Mg Tablet PO Q4H PRN Pain Rated 4-6 Oxycodone/Acetaminophen 1 tab 01/24/25 11:14 01/24/25 15:11 Oxycodone/Acetaminophen (*Crx) 10-325 Mg Tablet PO 1 tab Q4H PRN Administration Pain Rated 7-10 Rosuvastatin Calcium 40 mg 01/24/25 09:00 01/24/25 08:15 Rosuvastatin 20 Mg Tablet PO 40 mg DAILY LUIS Administration Senna/Docusate Sodium 1 tab 01/23/25 11:50 Senna/Docusate Sodium Tablet PO HS PRN Constipation Telmisartan 80 mg 01/24/25 09:00 01/24/25 08:14 Telmisartan 40 Mg Tablet PO 80 mg DAILY LUIS Administration Radiology Results: ITS Impressions Fluoroscopy 01/23/25 11:07 IMPRESSION: Fluoroscopy used during L4-5, L5-S1 posterior lumbar interbody fusion.
[2025-01-24] MEDS: ACETAMINOPHEN 500 MG TABLET 1000 MG PO ×2 (17:02→22:56)
[2025-01-24] MEDS: glipiZIDE 5 MG TABLET PO (17:03)
[2025-01-24] MEDS: oxyCODONE HCL (*CRX) 5 MG TAB IR 10 MG PO (19:51)
[2025-01-24 19:54] VITALS: BP 135/81; PULSE 108; RESP 16; TEMP 36.5; O2SAT 100
[2025-01-25] MEDS: oxyCODONE HCL (*CRX) 5 MG TAB IR 10 MG PO ×2 (01:58→08:06)
[2025-01-25] MEDS: ACETAMINOPHEN 500 MG TABLET 1000 MG PO ×2 (05:04→10:11)
[2025-01-25 06:14] VITALS: BP 106/70; PULSE 95; RESP 16; TEMP 36.4; O2SAT 97
[2025-01-25] MEDS: DOCUSATE SODIUM 100 MG CAPSULE PO (08:04)
[2025-01-25] MEDS: ROSUVASTATIN 20 MG TABLET 40 MG PO (08:05)
[2025-01-25] MEDS: metFORMIN HCL 500 MG TABLET 1000 MG PO (08:05)
[2025-01-25] MEDS: TELMISARTAN 40 MG TABLET 80 MG PO (08:05)
[2025-01-25] MEDS: OMEGA 3 POLYUNSAT FATTY ACIDS 1 GM CAP PO (08:05)
[2025-01-25] MEDS: CYCLOBENZAPRINE HCL 10 MG TABLET PO ×2 (08:05→12:49)
[2025-01-25] MEDS: ceFAZolin 1 GM/NS 50 ML 1 GM/50 ML BAG IVPB (08:06)
--- NOTE | 2025-01-25 12:54 | P.PNNEUSUR_ITS ---
Progress Note: A&P Assessment and Plan (1) Status post lumbar spinal arthrodesis: Code(s): Z98.1 - Arthrodesis status Status: Acute Plan -Remove hemovac drain -Discharge home today -Activity and wound care precautions discussed at bedside -Follow up with Dr. Charles in 6 weeks Subjective Date/time seen: 01/25/25 12:54 Interval history: Pain is better controlled today. He ambulated the halls with therapy. Hemovac output has decreased considerably today. He is voiding independently. He is passing gas. Review of Systems Review of Systems: All systems reviewed & are unremarkable except as noted in HPI and below Exam Narrative: AOx4 Incision c/d/i Full strength in legs Objective Data Vital Signs Vital Signs: Vital Signs - 24 hr 01/24/25 14:51 01/24/25 19:54 01/24/25 20:00 Temperature 97.4 F L 97.7 F Pulse Rate 103 H 108 H Respiratory Rate 18 16 Blood Pressure 134/69 135/81 Pulse Oximetry 99 100 Oxygen Delivery Room Air 01/25/25 06:14 01/25/25 08:00 Temperature 97.6 F Pulse Rate 95 Respiratory Rate 16 Blood Pressure 106/70 Pulse Oximetry 97 Oxygen Delivery Room Air Intake/Output Intake/Output: Intake & Output 01/22/25 01/23/25 01/24/25 01/25/25 23:59 23:59 23:59 23:59 Intake Total 1751.6 1348.4 530 Output Total 1540 2870 110 Balance 211.6 -1521.6 420 Meds/Results Medications: Active Medications Generic Name Dose Route Start Last Admin Trade Name Freq PRN Reason Stop Dose Admin Acetaminophen 1,000 mg 01/24/25 16:10 01/25/25 10:11 Acetaminophen 500 Mg Tablet PO 1,000 mg Q6H LUIS Administration Al Hydrox/Mg Hydrox/Simethicone 20 ml 01/23/25 11:50 Mag Hydrox/Al Hydrox/Simeth 30 Ml Udc PO Q4H PRN Indigestion/Heartburn Bisacodyl 10 mg 01/23/25 11:50 Bisacodyl 10 Mg Suppository RECTAL DAILY PRN Constipation Cyclobenzaprine HCl 10 mg 01/23/25 11:50 01/24/25 19:52 Cyclobenzaprine Hcl 10 Mg Tablet PO 10 mg TID PRN Administration Muscle Spasms Cyclobenzaprine HCl 10 mg 01/23/25 13:47 01/25/25 12:49 Cyclobenzaprine Hcl 10 Mg Tablet PO 10 mg TID LUIS Administration Docusate Sodium 100 mg 01/23/25 21:00 01/25/25 08:04 Docusate Sodium 100 Mg Capsule PO 100 mg Q12HR LUIS Administration Fish Oil 1 gm 01/24/25 09:00 01/25/25 08:05 [place] 3 Polyunsat Fatty Acids 1 Gm Cap PO 1 gm QAM LUIS Administration Glipizide 5 mg 01/23/25 17:00 01/24/25 17:03 Glipizide 5 Mg Tablet PO 5 mg DAILY@1700 LUIS Administration Hydromorphone HCl 0.5 mg 01/23/25 11:50 01/24/25 08:39 Hydromorphone Hcl Inj (*Crx) 1 Mg/Ml Syr IV PUSH 0.5 mg Q2H PRN Administration Pain Rated 7-10 Cefazolin Sodium 1 gm in 50 mls @ 100 mls/hr 01/23/25 16:00 01/25/25 08:36 Ancef 1 Gm/Ns 50 Ml IVPB Infused Q8H LUIS Infusion Potassium Chloride/Dextrose/Sod Cl 1,000 mls @ 100 mls/hr 01/23/25 11:50 01/24/25 13:11 Kcl 20 Meq/D5/0.45% Sod Chl IV CONT 30 mls/hr .Q10H LUIS Administration Metformin HCl 1,000 mg 01/24/25 08:00 01/25/25 08:05 Metformin Hcl 500 Mg Tablet PO 1,000 mg BIDWM LUIS Administration Ondansetron HCl 4 mg 01/23/25 11:50 Ondansetron Inj 4 Mg/2 Ml Vial IV PUSH Q8H PRN Nausea And Vomiting Oxycodone HCl 5 mg 01/24/25 16:06 Oxycodone Hcl (*Crx) 5 Mg Tab Ir PO Q4H PRN Pain Rated 4-6 Oxycodone HCl 10 mg 01/24/25 16:06 01/25/25 08:06 Oxycodone Hcl (*Crx) 5 Mg Tab Ir PO 10 mg Q4H PRN Administration Pain Rated 7-10 Rosuvastatin Calcium 40 mg 01/24/25 09:00 01/25/25 08:05 Rosuvastatin 20 Mg Tablet PO 40 mg DAILY LUIS Administration Senna/Docusate Sodium 1 tab 01/23/25 11:50 Senna/Docusate Sodium Tablet PO HS PRN Constipation Telmisartan 80 mg 01/24/25 09:00 01/25/25 08:05 Telmisartan 40 Mg Tablet PO 80 mg DAILY LUIS Administration Radiology Results: ITS Impressions Fluoroscopy 01/23/25 11:07 IMPRESSION: Fluoroscopy used during L4-5, L5-S1 posterior lumbar interbody fusion.
--- NOTE | 2025-01-25 13:00 | P.DS_ITS ---
DS: Admitting Diagnosis Discharge Date January 25, 2025 Admitting Diagnosis Lumbar radiculopathy, lumbar disc herniation DS: Discharge Diagnosis Discharge Diagnosis (1) Status post lumbar spinal arthrodesis: Code(s): Z98.1 - Arthrodesis status Status: Acute DS: Summary Hospital Course Hospital Course: Mr. Zhao is a 69-year-old male who presented on January 23 for surgery in the form of L4-5, L5-S1 PLIF; please see the operative note for more details. He was transferred to the floor after surgery. PT/OT were consulted to recommended discharge home. His hemovac drain output was high on POD1, and his pain medications were adjusted to reduce IV pain medication requirements. His stewart catheter was removed on POD1. Hemovac output reduced significantly on POD2, and this was removed. His pain was better controlled with oral medications. He was determined ready for discharge home on POD2. Time Spent with Patient Time attestation: Total time spent providing and/or coordinating discharge services: Discharge Plan Discharge Activity: other - see discharge instructions Diet: as tolerated Wound Care Instructions: follow printed instructions Discharge Instructions: INSTRUCTIONS AFTER YOUR LUMBAR FUSION ? Your incision is closed with skin glue. This will peel off on its own. ? You may shower and get your incision wet with soap and water starting on post- operative day 3 (Wednesday). Do not submerge the incision under water (like in a bathtub or swimming pool) for 6 weeks after surgery. Never apply ointments or lotions to the incision. ? The incision should be checked daily. Notify the office if there is drainage, redness, or if you have fever with a temperature of over 101 degrees. ? You are encouraged to walk as much as comfortable, with assistance as needed. For example, it may be beneficial to walk short distances hourly during the waking hours and gradually increase walking during your recovery period. Fatigue can be common. ? Avoid any bending, heavy lifting, or twisting movements. ? You have an wxkds-yr-pay-pound lift restriction until further advised by your physician (a gallon of milk weighs eight pounds). ? Make frequent position changes, avoiding long periods of sitting. Try not to sit more than 60 minutes at a time. ? You may engage in sexual activity in two weeks as tolerated. ? No housework, especially vacuuming, making beds, or doing laundry until seen in the office. ? You may walk stairs carefully. ? Minimize long car rides for the first two weeks. You may resume driving when you feel comfortable; however, you may not drive if still taking narcotic pain medications. ? You should start with Tylenol 1000mg every 6 hours for pain first. If the Tylenol is not effective, you may then take oxycodone. ? The physician may order pain medication and/or muscle relaxers. As time goes by, you should require less of these. Always take your medication as ordered, and only if needed. If you take more than prescribed, it will not be refilled early. If you feel you require narcotic medication refill, kindly give the office a 72-hour notice. No refills are given over the weekend. ? Avoid use of anti-inflammatory medications (like Ibuprofen, Aleve, Advil, Motrin) for up to three months following fusion surgery. Use of these medications may slow healing. ? Resume your usual diet. Constipation is a common problem postop. You may use any over the counter laxative, or stool softener. Always follow the bottle directions. ? Use of nicotine products should be stopped completely. Smoking can slow the healing process significantly. It can also increase the chance for developing postop pneumonias and other complications. Please avoid use of all nicotine products for at least three months after spine surgery. FOLLOW-UP ? You should have an appointment to see Dr. Charles in clinic in about 6 weeks. Please call the office if you need to confirm or change your appointment. ? Schedule an appointment with your primary care physician in the near future to ensure he/she is aware of your recent hospitalization and surgery and to ensure your other medical issues are being properly managed. This is particularly important to ensure your blood sugars are being well-controlled while you are healing from surgery. FOR AN EMERGENCY AFTER HOURS OR ON A WEEKEND, PLEASE CALL THE MEDICAL EXCHANGE AT ? Call the office for: o Appointment set up. o Fever greater than 101 degrees. o Increased pain, swelling, redness or drainage from your incision. o Trouble swallowing or breathing. o Pain, swelling or weakness of your legs. o Any other question or concerns you may have. Pranav Charles MD Neurosurgery [place] [address], [place] [address] Patient Language: Tunisian Discharge Medications: New cyclobenzaprine 10 mg Tablet 10 mg PO TID 10 Days Qty: 30 0RF sennosides-docusate sodium [Senokot-S] 8.6-50 mg Tablet 1 tab PO BID 7 Days Qty: 14 0RF oxycodone 5 mg Tablet 5 - 10 mg PO Q4H PRN (Reason: Pain Rated 4-6) 7 Days Qty: 42 0RF Continued rosuvastatin 40 mg tablet 40 mg PO DAILY metformin 1,000 mg tablet 1,000 mg PO BID Patient Comments: TAKES 1000 MG BID telmisartan 80 mg tablet 80 mg PO DAILY glipizide 5 mg tablet 5 mg PO HS berberine chloride 500 mg capsule 500 mg PO BID omega 8-but-mrh-fish oil 100-160-1,000 mg capsule 1 cap PO DAILY coenzyme Q10 100 mg capsule 100 mg PO DAILY famotidine [Pepcid] 20 mg tablet 20 mg PO PRN Held aspirin 81 mg capsule 81 mg PO HS Hold Instructions: Resume on 01/30/25. Discontinued tramadol 50 mg tablet 50 mg PO Q6H PRN (Reason: pain) cyclobenzaprine 10 mg tablet 10 mg PO TID Qty: 30 0RF Date of admission: 01/24/25 16:16 Primary Care Provider: Sourav,Alisha Tabor Do Admitting Provider: Pranav Charles Attending physician on admission: Pranav Charles
== END 2025-01-25 13:45 | disposition home or self-care (01) ==
LOC: ANHSURGERY 16:19 → ANH2MED 16:19
PROVIDERS: Admitting Provider Neurological Surgery; Visit Provider Neurological Surgery
PROC: (CPT 22612; principal; 2025-01-23 07:30)
DX: M47.896 Other spondylosis, lumbar region (principal); M47.897 Other spondylosis, lumbosacral region; M51.16 Intervertebral disc disorders with radiculopathy, lumbar region; E11.9 Type 2 diabetes mellitus without complications; E78.00 Pure hypercholesterolemia, unspecified; I10 Essential (primary) hypertension; Z87.442 Personal history of urinary calculi; Z79.82 Long term (current) use of aspirin; Z79.84 Long term (current) use of oral hypoglycemic drugs; Z79.899 Other long term (current) drug therapy
CPT/HCPCS: 22630; 22632; 63052; 63053; 22842; 22853 ×2; 20936; 36415; 82948; 86850; 86900; 86901; 97161; 97165; 97530; 97535; 99199; A9270; C1713; G0378; J0690; J1100; J1171; J2003; J2004; J2405; J2704; J3010; J3480; J7120

== ENCOUNTER 2025-03-06 09:02 | Outpatient (CLI) | payer MEDICARE, SELFPAY ==
--- NOTE | ~2025-03-06 | XR_ITS ---
Lumbosacral Spine: AP and lateral views Clinical History: Pain Findings: The normal lordotic curve is maintained. There is minimal grade 1 retrolisthesis of L3 over L4. There is advanced degenerative spurring at L2-L3 and moderate degenerative disc narrowing at L1- L2. There is posterior and interbody fusion from L4 through S1. The sacroiliac joints are normally ou tlined. Impression: Status post fusion from L4 through S1. Degenerative spondylosis of the upper lumbar spine, as detailed above. Reviewed, dictated and finalized at location M. Impression: Status post fusion from L4 through S1. Degenerative spondylosis of the upper lumbar spine, as detailed above.
--- OUTSIDE RECORDS SUMMARY | 2025-03-06 09:11 | XMS_ITS | Clinical Summary ---
Author Organization [facility] Address [address] [place] [address] Care Team Providers Care Chief Merchandising Officer Name Role Phone Dominick Brennan MD Primary Care Provider [phone] Pranav Charles MD Unavailable [phone] Allergies Active Allergy Reactions Criticality Noted Date Comments Vince Inhibitors Other (See comments) Low 01/02/2020 Cough Medications blood glucose diagnostic (OneTouch Ultra Blue Test Strip) strip Test once a day on a rotation basis 7 Active metFORMIN (GLUCOPHAGE) 500 mg tabletIndicatio ns:Prevention of Type 2 Diabetes Mellitus Take 1,000 mg by mouth 2 (two) times a day with meals 0 Active omega-3 fatty acids-fish oil 360-1,200 mg capsule Take 1,200 mg by mouth daily Active rosuvastatin (CRESTOR) 10 mg tablet TAKE ONE TABLET BY MOUTH EVERY EVENING 0 Active telmisartan (MICARDIS) 40 mg tablet Take 40 mg by mouth daily 0 Active coenzyme Q10 100 mg capsule Take 100 mg by mouth daily Active HYDROcodone-vince taminophen (NORCO) 5-325 mg per tabletIndicatio ns:Pain Take 1-2 tablets by mouth every 4 (four) hours as needed for pain 30 tablet 2 Active tiZANidine (ZANAFLEX) 4 mg tablet Take 1 tablet (4 mg total) by mouth every 8 (eight) hours as needed for muscle spasms 30 tablet 1 5 Active methylPREDNISol one (MEDROL DOSEPACK) 4 mg Dosepack Take as directed on package 1 packet 5 02/17/20 25 Active Problems Problem Noted Date Diagnosed Date Personal history of colonic polyps 01/22/2021 Overview (01/22/2021): Added automatically from request for surgery [id number] Encounter for screening colonoscopy 01/22/2021 Overview (01/22/2021): Added automatically from request for surgery [id number] Inflamed seborrheic keratosis 03/03/2017 Papules 11/12/2015 Keratosis, senilis 11/12/2015 Multiple benign melanocytic nevi 11/12/2015 Hypertension 03/10/2014 Overview (01/28/2017): HYPERTENSION NOS Hyperlipidemia 03/10/2014 Overview (01/30/2017): HYPERLIPIDEMIA NEC/NOS Encounters Date Type Department Care Team Description 02/10/2025 Orders Only 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 Gender Identity Not on file Sexual Orientation Not on file Obstetrics History Last Filed Vital Signs Vital Sign Reading Time Taken Comments Blood Pressure 150/96 12/29/2021 10:20 AM MECHANICAL ASSEMBLY TECHNICIAN Pulse 73 12/29/2021 10:25 AM MECHANICAL ASSEMBLY TECHNICIAN Temperature 36 C (96.8 F) 12/29/2021 9:55 AM MECHANICAL ASSEMBLY TECHNICIAN Respiratory Rate 17 12/29/2021 10:25 AM MECHANICAL ASSEMBLY TECHNICIAN Oxygen Saturation 99% 12/29/2021 10:25 AM MECHANICAL ASSEMBLY TECHNICIAN Inhaled Oxygen Concentration - - Weight 74.8 kg (165 lb) 12/15/2021 11:40 AM MECHANICAL ASSEMBLY TECHNICIAN Height 167.6 cm (5' 6 ) 12/15/2021 11:40 AM MECHANICAL ASSEMBLY TECHNICIAN Body Mass Index 26.63 12/15/2021 11:40 AM MECHANICAL ASSEMBLY TECHNICIAN Plan of Treatment Health Maintenance Due Date [...] 5 season) 2024 02/04/2021, 01/07/2021 Influenza Vaccine (Season Ended) 2025 08/15/2019, 08/14/2019, 09/21/2018, Additional history exists Colon Cancer [...] Ortega MD - 03/10/2021 7:29 AM CDT [facility] Patient Name: Zander Zhao Procedure Date: 03/10/2021 7:29 AM Date of : 1955 Admit Type: Outpatient Age: 65 Gender: Male Attending MD: Eran Ortega M.D. Room: [facility] END[facility]COPY ROOM 2 Note Status: Finalized [...] scope was passed under direct vision. TheColonoscope [id number] was introduced through the anus and advanced [...] 7:29 AM Procedure Code(s): --- Professional --- 81972, Colonoscopy, flexible; with biopsy, single or multiple Diagnosis Code(s): --- Professional --- K63.5, Polyp of colon K64.9, Unspecified hemorrhoids Z86.010, Personal history of colonic polyps CPT copyright 2019 [employer]. All rights reserved. The codes documented in this report are preliminary and upon spray dry operator reviewmay be revised to meet current compliance requirements. Recognized by the [employer] for promoting quality in endoscopy Eran Ortega MD ENDOSCOPY PROCEDURES Final Re sult from Last 3 Months or Most Recently Relevant to Health Maintenance Insurance [facility] AETNA MEDICARE [employer] [facility] H[facility]/PPO Address: [address] [address] [place] [address] Advance Directives For more information, please contact: [phone] * Full Code (Latest Code Status on File) Date Activated Date Inactivated Comments 03/10/2021 7:50 AM 03/10/2021 1:38 PM Care Teams Chief Merchandising Officer Relationship Specialty Start Date End Date Dominick Brennan MD [address] [facility] [address] [address] PCP - General 12/23/21 Pranav Charles MD [address] [facility] [address] [address] Consulting Physician Neurosurgery 12/29/21
--- OUTSIDE RECORDS SUMMARY | 2025-03-06 09:11 | XMS_ITS | Clinical Summary ---
Author Organization [facility] Address [address] [place] [address] Phone Care Team Providers Care Ginning Operator Name Role Phone Eran Ortega MD Unavailable Unavailable Allergies Active Allergy Reactions Criticality Noted Date Comments Vince Inhibitors Other (see Comments) Cough Medications Bingen-3 Fatty Acids (FISH OIL) 1200 MG Capsule [...] - 144 mmol/L 07/03/2020 11:10 AM CDT [facility] POTASSIUM 4.8 3.5 - 5.1 mmol/L 07/03/2020 11:10 AM CDT [facility] CHLORIDE 98(L) 100 - 110 mmol/L 07/03/2020 11:10 AM CDT [facility] CO2, VENOUS 27 22 - 32 mmol/L 07/03/2020 11:10 AM CDT [facility] ANION GAP 13.8 8.0 - 20.0 mmol/L 07/03/2020 11:10 AM CDT [facility] GLUCOSE 180(H) 70 - 99 mg/dL 07/03/2020 11:10 AM CDT [facility] BUN 23 8 - 23 mg/dL 07/03/2020 11:10 AM CDT [facility] CREATININE, BLOOD 0.69(L) 0.80 - 1.30 mg/dL 07/03/2020 11:10 AM CDT [facility] BUN/CREATININE RATIO 33(H) 12 - 20 ratio 07/03/2020 11:10 AM CDT [facility] TOTAL PROTEIN 7.0 6.0 - 8.3 g/dL 07/03/2020 11:10 AM CDT [facility] ALBUMIN 4.7 3.5 - 5.2 g/dL 07/03/2020 11:10 AM CDT [facility] Comment: The colormetric methods used for the determination of Albumin may lead to falsely elevated test results in patients suffering from renal failure or insufficiency due to interference with other proteins. A/G RATIO 2.0 1.0 - 2.0 07/03/2020 11:10 AM CDT [facility] CALCIUM 10.1 8.9 - 10.3 mg/dL 07/03/2020 11:10 AM CDT [facility] T BILI 0.9 <=1.2 mg/dL 07/03/2020 11:10 AM CDT [facility] SGOT (AST) 21 <=40 U/L 07/03/2020 11:10 AM CDT [facility] SGPT (ALT) 35 <=41 U/L 07/03/2020 11:10 AM CDT [facility] ALKALINE PHOSPHATASE 78 40 - 130 U/L 07/03/2020 11:10 AM CDT [facility] GFR, EST. NONAFRICAN >60 >=60 07/03/2020 11:10 AM CDT [facility] GFR, EST. >60 >=60 020 11:10 AM CDT [facility] Comment: Creatinine Clearance is the preferred criteria for selecting drug dose adjustments in renally impaired patients. The GFR is provided as additional pertinent clinical information. GFR is reported in mL/min/1.73 sq m. Blood Venipuncture / Unknown 07/03/2020 9:14 AM CDT 07/03/2020 10:22 AM CDT us Yue Meek MD CHEMISTRY ORDERABLES Final Resul t [facility] [address] [place] [address] * (ABNORMAL) POCT GLYCOSYLATED HEMOGLOBIN (06/25/2020 3:55 [...] Maintenance Insurance MEDICARE C [employer]ET[employer] Care Teams Ginning Operator Relationship Specialty Start Date End Date Eran Ortega MD Consulting Physician Gastroenterology 05/05/17
--- OUTSIDE RECORDS SUMMARY | 2025-03-06 09:11 | XMS_ITS | Clinical Summary ---
Author Organization [facility] Address [address] [place] [address] Phone Care Team Providers Care Outside Property Agent Name Role Phone Alisha Benjamin Primary Care Provider Allergies Active Allergy Reactions Criticality Noted Date Comments Vince Inhibitors Other (See Comments) Low 01/02/2020 Cough Cough Medications aspirin-calcium carbonate 81 mg-300 mg calcium(777 mg) Tablet Take 81 mg by mouth. Active coenzyme Q10 100 mg Capsule Take 100 mg by mouth. Active Fish Oil-[place]-3 Fatty Acids 360-1,200 mg Capsule Take 1,200 mg by mouth. Active sildenafiL (Viagra) 50 mg tabletIndication s:Erectile dysfunction, unspecified erectile dysfunction type Take 1 Tablet (50 mg) by mouth 1 time daily as needed for Erectile Dysfunction. 10 Tablet 1 05/05/20 23 Active rosuvastatin (CRESTOR) 10 mg tablet TAKE 1 TABLET (10 MG) BY MOUTH DAILY. 100 Tablet 3 03/03/20 24 Active telmisartan (MICARDIS) 80 mg TabletIndication s:Benign hypertension take 1 tablet by mouth every day 100 Tablet 3 03/24/20 24 Active metFORMIN (GLUCOPHAGE) 500 mg tablet TAKE 2 TABS BY MOUTH 2 TIMES DAILY (WITH MEALS). 360 Tablet 3 05/11/20 24 Active glipiZIDE (GLUCOTROL XL) 5 mg Extended Release 24 hour tabletIndication s:Type 2 diabetes mellitus with hyperglycemia, without long-term current use of insulin ([facility]) Take 1 Tablet (5 mg) by mouth daily. 08/25/20 24 Active blood sugar diagnostic (OneTouch Verio test strips) StripIndications :Type 2 diabetes mellitus with hyperglycemia, without long-term current use of insulin ([facility]) ASSESS BLOOD GLUCOSE 3 TIMES A DAY. DX: E11.65 200 Strip 3 11/14/19 25 Active traMADol (ULTRAM) 50 mg tabletIndication s:Low back pain, unspecified back pain laterality, unspecified chronicity, unspecified whether sciatica present Take 1 Tablet (50 mg) by mouth every 6 hours as needed for Pain. 30 Tablet 02/15/20 25 Active tiZANidine (ZANAFLEX) 4 mg Tablet Take 4 mg by mouth. 02/11/20 25 Active Senexon-S 8.6-50 mg tablet 1 TAB ORALLY TWICE A DAY FOR CONSTIPATION FOR 7 DAYS 01/26/20 25 Active traMADoL (ULTRAM) 50 mg tabletIndication s:Low back pain, unspecified back pain laterality, unspecified chronicity, unspecified whether sciatica present Take 1 Tablet (50 mg) by mouth every 6 hours as needed for Pain. 30 Tablet 5 01/12/20 25 025 Discontin ued(Reord er) Active Problems Problem Noted Date Diagnosed Date Benign hypertension 07/15/2020 Pure hypercholesterolemia 07/15/2020 Nephrolithiasis 07/15/2020 DDD (degenerative disc disease), lumbar 07/15/20 20 Type 2 diabetes mellitus wit h hyperglycemia, without long-term current use of insulin Encounters Date Type Department Care Team Description 02/27/2025 Results Follow-Up [facility] Internal Medicine [facility] [address] [facility] [place] [address] Wayne James PA-C MICROALBUMIN/CREATININE RATIO, RANDOM UR 02/26/2025 11:00 AM CDT Office Visit [facility] Internal Medicine [facility] A [facility] [address] [facility] [place] [address] Ailsha Benjamin DO Encounter for Medicare annual wellness exam (Primary Dx); Type 2 diabetes mellitus with hyperglycemia, without long-term current use of insulin ([facility]); Hypercalcemia; Vitamin D deficiency; Benign hypertension; Pure hypercholesterolemia 02/26/2025 Orders Only [facility] Internal Medicine [facility] [address] [place] [address] Yesika Marlow Type 2 diabetes mellitus with hyperglycemia, without long-term current use of insulin ([facility]) 02/26/2025 Chart Note [facility] [address] [place] [address] Rani Raygoza RN 02/12/2025 Refill [facility] Internal Medicine [facility] A [facility] [address] [address] Raul Corona MD Low back pain, unspecified back pain laterality, unspecified chronicity, unspecified whether sciatica present 01/24/2025 Orders Only [facility] Internal [facility] [address] [place] [address] Provider, Abstract 01/10/2025 External Device Data STL ABSTRACTION Provider, Abstract 01/10/2025 Refill [facility] A [facility] [address] [address] Alisha Benjamin, Low back pain, unspecified back pain laterality, unspecified chronicity, unspecified whether sciatica present 12/30/2024 External Device Data ST[place] ABSTRACTION Provider, Abstract 12/29/2024 External Device Data [place] ABSTRACTION Provider, Abstract 12/13/2024 External Device Data STL ABSTRACTION Provider, Abstract from Last 3 Months Immunizations Immunization Administration Dates Next Due (PREVNAR 13)(6 WKS UP) PNEUM OCOCCAL CONJUGATE (PCV13) 0.5 ML, IM 08/04/2021 (PREVNAR 20)(6 WKS UP) PNEUM OCOCCAL CONJUGATE VACCINE 20-VALENT (PCV20), POLYSACCHARIDE [id number] CONJUGATE, ADJUVANT 0.5 ML (PF) IM 09/24/2022 [...] 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 Not on file Not on file Not on file Last Filed Vital Signs Vital Sign Reading Time Taken Comments Blood Pressure 124/78 02/26/2025 10:21 AM CDT Pulse 90 02/26/2025 10:21 AM CDT Temperature 36.9 C (98.5 F) 02/26/2025 10:21 AM CDT Respiratory Rate 18 01/31/2024 1:38 PM CDT Oxygen Saturation 97% 02/26/2025 10:21 AM CDT Inhaled Oxygen Concentration - - Weight 73 kg (161 lb) 02/26/2025 10:21 AM CDT Height 167.6 cm (5' 6 ) 02/26/2025 10:21 AM CDT Body Mass Index 25.99 02/26/2025 10:21 AM CDT Plan of Treatment Upcoming Encounters Date Type Department Care Team (Late st Contact Info) Description 10/01/2025 1:00 PM SENIOR USER EXPERIENCE ARCHITECT Office Visit [facility] Internal Medicine [facility] A [facility] [address] [address] Alisha Benjamin, DO [address] [place], [place] [phone] 04/15/2026 11:30 AM CDT Office Visit [facility] Internal Medicine [facility] A [facility] [address] [address] Alisha Benjamin, DO [address] [place], [place] [id number] Health Maintenance Due Date Last Done Comments DTAP/TDAP/TD VACCINES (1 - Tdap) 1973 FIT-DNA Q 3 years 1999 FIT/FOBT Q 1 year 1999 Flex Sig/CT Colonography Q 5 years 1999 ZOSTER VACCINE (1 of 2) 2004 DIABETES ANNUAL RETINAL EXAM 02/12/2023, 12/27/2020, 12/08/2019 INFLUENZA VACCINE (#1) 2024 , 09/24/2022, 08/04/2021, Additional history exists COVID-19 Vaccine (3 - 2023-2 5 season) 2024 02/04/2021, 01/07/2021 DIABETES ANNUAL FOOT EXAM 01/30/20252023, 09/10/2022, 09/10/2022 DIABETES HBA1C Q 6 MONTHS 08/14/20252024, 08/16/2024, 01/20/2024, Additional history exists DIABETES: A1C (Auto Order) 02/12/202602/12, 08/16/2024, 01/20/2024, Additional history exists LDL CHOLESTEROL ANNUAL 02/12/2026 , 08/16/2024, 10/27/2023, Additional history exists DIABETES MICROALBUMIN ANNUAL SCREEN 02/26/2026 02/26/2025, 08/16/2024, 10/29/2023, Additional history exists COLORECTAL SCREENING 03/10/2026 03/10/2021, 03/10/2021, 03/10/2021, Additional history exists Colorectal Cancer Screening 03/10/2026 RSV VACCINE (60+ or ) (1 - 1-dose 75+ series) 2029 PNEUMOCOCCAL VACCINE 50+ YEARS Completed 09/24/2022 , 08/04/2021 KHE eGFR (Auto Order) Completed 02/12/2025 , 08/16/2024, 01/20/2024, Additional history exists KHE uACR (Auto Order) Completed 02/26/2025 , 08/16/2024, 10/29/2023, Additional history exists [place] Preventative Visit/Annual Wellness Visit Completed 02/26/2025, 10/29/2023, 08/10/2023, Additional history exists Goals Goal Patient Goal Type Associated Problems Recent Progress Patient-Stated? Author HYPERTENSIO N CARE PLAN GOAL Care Plan IFTIKHAR MYC HYPERTENSION CARE PLAN PROBLEM No Alisha Benjamin, DO Procedures Procedure Name Priority Date/Time Associated Diagnosis Comments MICROALBUMIN/CREATI NINE RATIO, RANDOM UR Routine 02/26/2025 12:10 PM CDT Type 2 diabetes mellitus with hyperglycemia, without long-term current use of insulin ([facility]) VITAMIN D 25 HYDROXY Routine 02/12/2025 8:21 AM CDT Hypercalcemia TSH REFLEXIVE Routine 02/12/2025 8:21 AM CDT Hypercalcemia PTH INTACT Routine 02/12/2025 8:21 AM CDT Hypercalcemia PSA Routine 02/12/2025 8:21 AM CDT Screening for prostate cancer LIPID PANEL Routine 02/12/2025 8:21 AM CDT Type 2 diabetes mellitus with hyperglycemia, without long-term current use of insulin ([facility]) Pure hypercholesterolemia HEMOGLOBIN A1C Routine 02/12/2025 8:21 AM CDT Type 2 diabetes mellitus with hyperglycemia, without long-term current use of insulin ([facility]) COMPREHENSIVE METABOLIC PANEL Routine 02/12/2025 8:21 AM CDT Type 2 diabetes mellitus with hyperglycemia, without long-term current use of insulin ([facility]) CBC WITH DIFFERENTIAL Routine 02/12/2025 8:21 AM CDT Type 2 diabetes mellitus with hyperglycemia, without long-term current use of insulin ([facility]) IMAGING REPORT Routine 01/23/2025 2:47 PM CDT DIABETES EYE EXAM Routine 02/12/2022 ENDOSCOPY, COLON, SCREENING Routine 03/10/2021 from Last 3 Months or Most Recently Relevant to Health Maintenance Results * MICROALBUMIN/CREATININE RATIO, RANDOM UR (02/26/2025 12:10 PM CDT) Pathologist [facility] CREATININE, URINE 60 20 - 320 mg/dL [facility] ALBUMIN, URINE <0.2 See Note: mg/dL [facility] Comment: Reference Range: Reference Range Not established ALB/CREAT RATIO, URINE NOTE <30 mg/g creat [facility] [...] patient to be within a diagnostic category. Test Performed at: [facility] [address] [address] Estrella Medina MD Urine URINE SPECIMEN OBTAINED BY CLEAN CATCH PROCEDURE / Unknown 02/26/2025 12:10 PM CDT 02/26/2025 9:11 PM CDT Alisha Bib Sourav DO URINE ORDERABLES Final Result Performing Organization Address [facility]/ZIP Co de Phone Number [facility] [phone] [facility] [address] * TSH REFLEXIVE (02/12/2025 8:21 AM CDT) Pathologist [facility] TSH 1.04 0.40 - 4.50 mIU/L [facility] Comment: Test Performed at: [facility] [address] [place] [phone] Estrella Medina MD Blood 02/12/2025 8:21 AM CDT 02/12/2025 8:21 AM CDT Alisha Bib Benjamin DO CHEMISTRY ORDERABLES Final Re sult Performing Organization Address [facility] Co de Phone Number [place] [phone] [facility] [address] [place] [address] * (ABNORMAL) CBC WITH DIFFERENTIAL (02/12/2025 8:21 AM CDT) [facility] WBC 9.6 3.8 - 10.8 Thousand/u L [facility] RBC 3.80(L) 4.20 - 5.80 Million/uL [facility] HEMOGLOBIN 11.0(L) 13.2 - 17.1 g/dL [facility] HEMATOCRIT 34.2(L) 38.5 - 50.0 % [facility] MCV 90.0 80.0 - 100.0 fL [facility] MCH 28.9 27.0 - 33.0 pg [facility] MCHC 32.2 32.0 - 36.0 g/dL [facility] Comment: For adults, a slight decrease in the calculated MCHC value (in the range of 30 to 32 g/dL) is most likely not clinically significant; however, it should be interpreted with caution in correlation with other red cell parameters and the patient's clinical condition. RDW 11.8 11.0 - 15.0 % [facility] PLATELETS 415(H) 140 - 400 Thousand/u L [facility] MPV 10.8 7.5 - 12.5 fL [facility] NEUTROPHIL ABSOLUTE 6,566 1,500 - 7,800 cells/uL [facility] LYMPHOCYTE ABSOLUTE 2,198 850 - 3,900 cells/uL [facility] MONOCYTE ABSOLUTE 797 200 - 950 cells/uL [facility] EOSINOPHIL ABSOLUTE 10(L) 15 - 500 cells/uL [facility] BASOPHILS ABSOLUTE 29 0 - 200 cells/uL [facility] NEUTROPHIL 68.4 % [facility] LYMPHOCYTES 22.9 % [facility] MONOCYTE 8.3 % [facility] EOSINOPHILS 0.1 % [facility] BASOPHILS 0.3 % [facility] Comment: FASTING:YES FASTING: YES Test Performed at: [facility] [phone] Estrella Medina MD Blood 02/12/2025 8:21 AM CDT 02/12/2025 8:21 AM CDT Alisha Benjamin DO HEMATOLOGY ORDERABLES Final R esult [facility] [phone] [facility] [address] * (ABNORMAL) VITAMIN D 25 HYDROXY (02/12/2025 8:21 AM CDT) VITAMIN D, 25 OH, TOTAL 28(L) 30 - 100 ng/mL [facility] Comment: Vitamin D Status 25-OH Vitamin D: Deficiency: <20 ng/mL Insufficiency: 20 - 29 ng/mL Optimal: > or = 30 ng/mL For 25-OH Vitamin D testing on patients on D2-supplementation and patients for whom quantitation of D2 and D3 fractions is required, the [facility]TM) 25-OH VIT D, (D2,D3), LC/MS/MS is recommended: order code 08899 (patients >2yrs). See Note 1 Note 1 For additional information, please refer to http://education.TVAX Biomedical/faq/YJG671 (This link is being provided for informational/ educational purposes only.) FASTING:YES FASTING: YES Test Performed at: [facility] [address] [place] [address] Estrella Medina MD Blood 02/12/2025 8:21 AM CDT 02/12/2025 8:21 AM CDT [facility] Sourav DO CHEMISTRY ORDERABLES Final Re sult Performing Organization Address [facility]/ZIP Co de Phone Number [facility] [phone] [facility] [address] [place] [address] * PSA (02/12/2025 8:21 AM CDT) PSA 1.11 < OR = 4.00 ng/mL [facility] Comment: The total PSA value from this assay system is standardized against the WHO standard. The test result will be approximately 20% lower when compared to the equimolar-standardized total PSA (Adelaida Robert). Comparison of serial PSA results should be interpreted with this fact in mind. This test was performed using the Siemens chemiluminescent method. Values obtained from different assay methods cannot be used interchangeably. PSA levels, regardless of value, should not be interpreted as absolute evidence of the presence or absence of disease. Test Performed at: [facility] [address] [place] [address] Estrella Medina MD Blood 02/12/2025 8:21 AM CDT 02/12/2025 8:21 AM CDT Alishakelsi Benjamin DO CHEMISTRY ORDERABLES Final Re sult Performing Organization Address City/[facility]/ZIP Co de Phone Number [facility] [phone] [facility] [address] [place] [address] * PTH INTACT (02/12/2025 8:21 AM CDT) Pathologist [facility] PTH INTACT 63 16 - 77 pg/mL [facility] Comment: Interpretive Guide Intact PTH Calcium ------- Normal Parathyroid Normal Normal Hypoparathyroidism Low or Low Normal Low Hyperparathyroidism Primary Normal or High High Secondary High Normal or Low Tertiary High High Non-Parathyroid Hypercalcemia Low or Low Normal High FASTING:YES FASTING: YES Test Performed at: [facility] [id number] [place] [address] Estrella Medina MD Blood 02/12/2025 8:21 AM CDT 02/12/2025 8:21 AM CDT Alisha Benjamin DO CHEMISTRY ORDERABLES Final Re sult [facility] [phone] [facility] [address] * (ABNORMAL) HEMOGLOBIN A1C (02/12/2025 8:21 AM CDT) Pathologist [facility] HEMOGLOBIN A1C 6.7(H) <5.7 % of total Hgb [facility] Comment: For someone without known diabetes, a hemoglobin A1c value of 6.5% or greater indicates that they may have diabetes and this should be confirmed with a follow-up test. For someone with known diabetes, a value <7% indicates that their diabetes is well controlled and a value greater than or equal to 7% indicates suboptimal control. A1c targets should be individualized based on duration of diabetes, age, comorbid conditions, and other considerations. Currently, no consensus exists regarding use of hemoglobin A1c for diagnosis of diabetes for children. ESTIMATED AVERAGE GLUCOSE (MG/DL) 146 mg/dL [facility] ESTIMATED AVERAGE GLUCOSE (MMOL/L) 8.1 mmol/L [facility] Comment: FASTING:YES FASTING: YES Test Performed at: [facility] [address] [place] [address] Estrella Medina Blood 02/12/2025 8:21 AM CDT 02/12/2025 8:21 AM CDT Alisha Benjamin DO CHEMISTRY ORDERABLES Final Re sult [facility] [phone] [facility] [address] [place] [address] * LIPID PANEL (02/12/2025 8:21 AM CDT) CHOLESTEROL 152 <200 mg/dL [facility] HDL 63 > OR = 40 mg/dL [facility] TRIGLYCERIDE 123 <150 mg/dL [facility] LDL CALCULATED 69 mg/dL (calc) [facility] Comment: Reference range: <100 Desirable range <100 mg/dL for primary prevention; <70 mg/dL for patients with CHD or diabetic patients with > or = 2 CHD risk factors. LDL-C is now calculated using the Jeet-Giovanni calculation, which is a validated novel method providing better accuracy than the Friedewald equation in the estimation of LDL-C. Jeet SS et al. MAKENZIE. 2013;310(19): 0592-5142 (http://education.GeoEye.GoChime/faq/FCY475) CHOL/HDL RATIO 2.4 <5.0 (calc) [facility] NON-HDL CHOLESTEROL 89 <130 mg/dL (calc) [facility] Comment: For patients with diabetes plus 1 major ASCVD risk factor, treating to a non-HDL-C goal of <100 mg/dL (LDL-C of <70 mg/dL) is considered a therapeutic option. Test Performed at: [facility] [address] [address] Estrella Medina MD Blood 02/12/2025 8:21 AM CDT 02/12/2025 8:21 AM CDT us Alisha Bib Benjamin DO CHEMISTRY ORDERABLES Final Re sult [facility] [phone] [facility] [address] [address] * (ABNORMAL) COMPREHENSIVE METABOLIC PANEL (02/12/2025 8:21 AM CDT) GLUCOSE 214(H) 65 - 99 mg/dL [facility] Comment: Fasting reference interval For someone without known diabetes, a glucose value >125 mg/dL indicates that they may have diabetes and this should be confirmed with a follow-up test. BUN 19 7 - 25 mg/dL [facility] CREATININE 0.81 0.70 - 1.28 mg/dL [facility] EGFR 95 > OR = 60 mL/min/1. 73m2 [facility] BUN/CREAT RATIO SEE NOTE: 6 - 22 (calc) [facility] Comment: Not Reported: BUN and Creatinine are within reference range. SODIUM 137 135 - 146 mmol/L [facility] POTASSIUM 5.1 3.5 - 5.3 mmol/L [facility] CHLORIDE 102 98 - 110 mmol/L [facility] CO2 25 20 - 32 mmol/L [facility] CALCIUM 10.7(H) 8.6 - 10.3 mg/dL [facility] TOTAL PROTEIN 7.6 6.1 - 8.1 g/dL [facility] ALBUMIN 4.7 3.6 - 5.1 g/dL [facility] GLOBULIN 2.9 1.9 - 3.7 g/dL (calc) [facility] ALBUMIN/GLOBULIN RATIO 1.6 1.0 - 2.5 (calc) [facility] BILIRUBIN TOTAL 0.5 0.2 - 1.2 mg/dL [facility] ALKALINE PHOSPHATASE 159(H) 35 - 144 U/L [facility] AST 16 10 - 35 U/L [facility] ALT 15 9 - 46 U/L [facility] Comment: FASTING:YES FASTING: YES Test Performed at: [facility] [address] [place] [address] Estrella Medina MD Blood 02/12/2025 8:21 AM CDT 02/12/2025 8:21 AM CDT us Alisha Benjamin DO CHEMISTRY ORDERABLES Final Re sult Performing Organization Address [facility] Co de Phone Number [facility] [phone] [facility] [address] [phone] * IMAGING REPORT (01/23/2025 2:47 PM CDT) us Abstract Provider DIAGNOSTIC IMAGING ORDERABLES Final Result Performing Organization Address [facility] Co de Phone Number RAUL VALLADARES MD CLIA# [id number] [address] [place], [place] [phone] * HM DIABETES EYE EXAM (02/12/2022) us Abstract Provider HEALTH MAINTENANCE Final Resul t Performing Organization Address [facility] Co de Phone Number RAUL VALLADARES MD CLIA# [id number] [address] [place], [place] [phone] * ENDOSCOPY, COLON, SCREENING (03/10/2021) us Alisha Benjamin DO GI PROCEDURE ORDERABLES Final Result Performing Organization Address 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
--- OUTSIDE RECORDS SUMMARY | 2025-03-06 09:11 | XMS_ITS | Encounter Summary ---
Author Organization [facility] Address [address] [place] [address] Phone Care Team Providers Care Grinding Mill Operator Name Role Phone Dominick Brennan MD Primary Care Provider [phone] Eran Ortega MD Unavailable Unavailable Reason for Visit * Reason Comments Medication Refill Encounter Details Date Type Department Care Team (Late st Contact Info) Description 05/08/2021 Refill [facility] [address] [place] [address] Dominick Brennan MD [address] [address] Medication Refill Social History Tobacco Use Types [...] Total Score: 0 12/22/19 20 8:00 AM CHIEF OPTOMETRY SERVICE documented as of this encounter Care Teams Grinding Mill Operator Relationship Specialty Start Date End Date Dominick Brennan MD #2 [facility] [address] [place], [place] [phone] PCP - General Family Medicine 09/04/15 01/19/23 Eran Ortega MD #2 [facility] [address] [place] [address] Consulting Physician Gastroenterology 05/05/17 documented as of this encounter
--- OUTSIDE RECORDS SUMMARY | 2025-03-06 09:11 | XMS_ITS | Encounter Summary ---
Author Organization [facility] Address [address] [place] [address] Care Team Providers Care Vp Compliance Name Role Phone Alisha Benjamin Primary Care Provider [phone] Encounter Details Date Type Department Care Team (Late st Contact Info) Description 02/27/2025 Results Follow-Up 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 Internal Medicine [facility] [address] [phone] Alisha Benjamin, [address] [place], [place] [id number] 04/15/2026 11:30 AM CDT Office Visit [facility] Internal [facility] [address] [address] Alisha Benjamin DO [address] [address] [place], [place] [id number] documented as of this encounter Goals Goal Patient Goal Type Associated Problems Recent Progress Patient-Stated? Author HYPERTENSIO N CARE PLAN GOAL Care Plan IFTIKHAR MYC HYPERTENSION CARE PLAN PROBLEM No Alisha Benjamin DO documented as of this encounter Visit Diagnoses Not on filedocumented in this encounter Additional Health Concerns Active Problems Noted Date Diagnosed Date IFTIKHAR MYC HYPERTENSION CARE PLAN PROBLEM 5 documented as of this encounter Care Teams Vp Compliance Relationship Specialty Start Date End Date Alisha Benjamin DO [address] [place] [address] PCP - General Internal Medicine 07/15/20 documented as of this encounter
--- OUTSIDE RECORDS SUMMARY | 2025-03-06 09:11 | XMS_ITS | Referral Summary ---
Author Organization [facility] Address [address] [place] [address] Care Team Providers Care Director Teen Post Name Role Phone Dominick Brennan MD Primary Care Provider [phone] Pranav Charles MD Unavailable [phone] Encounters Date Type Department Care Team Description 02/10/2025 Orders Only [facility] Operating Room [address] [place] [address] Danis Horton MD from Last 3 Months Allergies Active Allergy Reactions Criticality Noted Date [...] (01/22/2021): Added automatically from request for surgery [id number] Encounter for screening colonoscopy 01/22/2021 Overview (01/22/2021): Added automatically from request for surgery [id number] Inflamed seborrheic keratosis 03/03/2017 Papules 11/12/2015 Keratosis, [...] on file Legal Sex Male 12:46 AM 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 INTEGRATION ENGINEER Gender Identity Not on file Sexual Orientation Not on file Last Filed Vital Signs Vital Sign Reading Time Taken Comments Blood Pressure 150/96 12/29/2021 10:20 AM AVIONICS INTEGRATION ENGINEER Pulse 73 12/29/2021 10:25 AM AVIONICS INTEGRATION ENGINEER Temperature 36 C (96.8 F) 12/29/2021 9:55 AM AVIONICS INTEGRATION ENGINEER Respiratory Rate 17 12/29/2021 10:25 AM AVIONICS INTEGRATION ENGINEER Oxygen Saturation 99% 12/29/2021 10:25 AM AVIONICS INTEGRATION ENGINEER Inhaled Oxygen Concentration - - Weight 74.8 kg (165 lb) 12/15/2021 11:40 AM AVIONICS INTEGRATION ENGINEER Height 167.6 cm (5' 6 ) 12/15/2021 11:40 AM AVIONICS INTEGRATION ENGINEER Body Mass Index 26.63 12/15/2021 11:40 AM AVIONICS INTEGRATION ENGINEER Plan of Treatment Not on file Procedures Procedure Name Priority Date/Time Associated Diagnosis Comments COLONOSCOPY 03/10/2021 7:29 AM CDT from Last 3 Months or Most Recently Relevant to Health Maintenance Results * COLONOSCOPY (03/10/2021 7:29 AM CDT) Anatomical Region Laterality Modality Other Narrative Procedure Note Eran Ortega MD - 03/10/2021 7:29 AM CDT [facility] Patient Name: Zander Zhao Procedure Date: 03/10/2021 7:29 AM Date of : 1955 Admit Type: Outpatient Age: 65 Gender: Male Attending MD: Eran Ortega M.D. Room: [facility] ROOM 2 Note Status: Finalized Patient [...] scope was passed under direct vision. TheColonoscope [id number] was introduced through the anus and advanced [...] 7:29 AM Procedure Code(s): --- Professional --- 18544, Colonoscopy, flexible; with biopsy, single or multiple Diagnosis Code(s): --- Professional --- K63.5, Polyp of colon K64.9, Unspecified hemorrhoids Z86.010, Personal history of colonic polyps CPT copyright 2019 [employer]. All rights reserved. The codes documented in this report are preliminary and upon grease packer reviewmay be revised to meet current compliance requirements. Recognized by the [employer] for promoting quality in endoscopy Eran Ortega MD ENDOSCOPY PROCEDURES Final Re sult from Last 3 Months or Most Recently Relevant to Health Maintenance Insurance [facility] AETNA MEDICARE [facility] CHOICE PLUS Advance Directives For more information, please contact: [phone] * Full Code (Latest Code Status on File) Date Activated Date Inactivated Comments 03/10/2021 7:50 AM 03/10/2021 1:38 PM Care Teams Director Teen Post Relationship Specialty Start Date End Date Dominick Brennan MD [address] [place] [address] PCP - General 12/23/21 Pranav Charles MD [address] [place] [address] Consulting Physician Neurosurgery 12/29/21
--- OUTSIDE RECORDS SUMMARY | 2025-03-06 09:11 | XMS_ITS | Encounter Summary ---
Author Organization [facility] Address [address] [place] [address] Phone Care Team Providers Care Thimble Press Operator Name Role Phone Dominick Brennan MD Primary Care Provider [phone] Eran Ortega MD Unavailable Unavailable Reason for Visit * Reason Comments Medication Refill Encounter Details Date Type Department Care Team (Late st Contact Info) Description 09/18/2021 Refill [facility] [address] [place] [address] Dominick Brennan MD [address] [address] Medication Refill Social History Tobacco Use Types [...] PM CST Patient needs an appointment with PCP/BACKEND TESTER prior to anymore refills K BURNISHER * Telephone Encounter - Beatrice Garcia RN - 09/19/2021 2:22 PM CST 90 days on 09/08/21 K BURNISHER documented in this encounter Plan of Treatment Not on file documented as of this encounter Visit Diagnoses Not on filedocumented in this encounter Additional Health Concerns Assessment Noted Time PHQ-9 Depression Total Score: 0 12/22/19 20 8:00 AM SHANK BURNISHER documented as of this encounter Care Teams Thimble Press Operator Relationship Specialty Start Date End Date Dominick Brennan MD [address] [id number] PCP - General Family Medicine 09/04/15 01/19/23 Eran Ortega MD [address] [address] Consulting Physician Gastroenterology 05/05/17 documented as of this encounter
--- OUTSIDE RECORDS SUMMARY | 2025-03-06 09:11 | XMS_ITS | Encounter Summary ---
Author Organization [facility] Address [address] [place] [address] Phone Care Team Providers Care Bods Developer Name Role Phone Dominick Brennan MD Primary Care Provider [phone] Eran Ortega MD Unavailable Unavailable Reason for Visit * Reason Comments Medication Refill Encounter Details Date Type Department Care Team (Late st Contact Info) Description 07/10/2021 Refill [facility] - Family Medicine [facility] [address] [place] [address] Dominick Brennan MD [address] [address] Medication Refill Social History Tobacco Use Types [...] Total Score: 0 12/22/19 20 8:00 AM INSPECTOR ALIGNING documented as of this encounter Care Teams Bods Developer Relationship Specialty Start Date End Date Dominick Brennan MD [address] [address] PCP - General Family Medicine 09/04/15 01/19/23 Eran Ortega MD [address] [address] Consulting Physician Gastroenterology 05/05/17 documented as of this encounter
== END 2025-03-06 09:03 | disposition home or self-care (01) ==
PROVIDERS: Visit Provider Neurological Surgery
DX: M47.896 Other spondylosis, lumbar region (principal); Z98.1 Arthrodesis status
CPT/HCPCS: 72100